=== PATIENT | female | born 1965 | race Caucasian/White ===

== ENCOUNTER 2016-04-10 14:52 | Emergency (ER) ==
[2016-04-10] MEDS ORDERED: TORADOL IM ONE (17:05)
[2016-04-10] MEDS ORDERED: DEPO-MEDROL IM ONE (17:05)
[2016-04-10] MEDS ORDERED: NORFLEX IM ONE (17:05)
--- NOTE | 2016-04-10 17:10 | PROVIDER DOCUMENTATION ---
HPI-General Adult - General Chief Complaint: Back Pain Stated Complaint: BACK PAIN Time Seen by Provider: 04/10/16 16:43 Source: patient Allergies/Adverse Reactions: Patient Allergies Allergy/AdvReac Type Severity Reaction Status Date / Time albuterol Allergy Intermediate VOMITING Verified 04/10/16 14:59 adhesive Allergy Unknown Verified 04/10/16 14:59 cefazolin sodium * Allergy ANAPHYLAXIS Verified 04/10/16 14:59 [From Ancef] morphine Allergy HIVES Verified 04/10/16 14:59 oxycodone HCl * Allergy NAUSEA Verified 04/10/16 14:59 [From Percocet] povidone-iodine Allergy RASH Verified 04/10/16 14:59 [From Betadine] soap * [From Betadine] Allergy RASH Verified 04/10/16 14:59 Home Medications: Clonazepam [Klonopin] 1 mg PO TID PRN 04/30/12 Furosemide [Lasix] 40 mg PO DAILY 04/30/12 Carvedilol [Coreg] 3.125 mg PO DAILY 09/26/12 Bupropion [Wellbutrin] 150 mg PO BID 04/01/13 Divalproex E.r. [Depakote ER] 500 mg PO HS 04/01/13 Losartan [Cozaar] 100 mg PO QHS 04/01/13 Dicyclomine HCl [Bentyl] 20 mg PO BID 04/21/15 Omeprazole [Prilosec] 40 mg PO BID 04/21/15 Pramipexole [Mirapex] 1 mg PO QHS 04/21/15 Trazodone [Desyrel] 150 mg PO QHS 04/21/15 Hyoscyamine Subl [Levsin-Sl] 0.25 mg SL 4XDAY PRN 11/17/15 - History of Present Illness -Gen Adult Nature of Presenting Problems: Pt. is 50 yof that presents with c/o low back pain with sciatica down her right leg that began on [place] and has progressively gotten worse. Pt. denies any injury or other symptoms. Pt. reports she has taken some steroids and OTC medications with no relief. Location of Pain/Injury: reports: back. denies: head, face, mouth, neck, chest , upper extremity, hand(s), abdomen, pelvis, genitalia, lower extremity, feet, upper body, lower body, generalized Pain Radiation: reports: legs (upper) (Right) Quality of Pain: reports: burning. denies: aching, cramping, dull, fullness, indigestion, pressure, sharp, stabbing, tearing, throbbing, tightness Severity: reports: moderate. denies: mild, severe Onset/Duration: reports: gradual, other (10 days) Timing: reports: still present, constant, changing over time, getting worse. denies: improving, gone now, resolved prior to arrival, intermittent Context/Activities at Onset: reports: none. denies: recent emotional stress, recent physical stress, recent trauma history, possible bad food, cold exposure , out of country travel Modifying Factors: improves with: nothing Associated Symptoms: reports: back/neck pain. denies: anxiety, arm pain, chest pain, constipation, cough, diaphoresis, diarrhea, dizziness, EENT symptoms, fatigue, fever/chills, genitourinary problems, headaches, heartburn, joint pain , loss of appetite, malaise, muscle aches, sinus congestion/drainage, nausea, rash, seizure, shortness of breath, sensory/motor loss, pain with inspiration, swelling/mass in abdomen, syncope, vomiting, weakness, trouble walking Similar Symptoms Previously?: Yes Recently seen or treated by another doctor?: No Review of Systems - Adult - REVIEW OF SYSTEMS - ADULT Constitutional: reports: see HPI. denies: chills, fever, fatique Eyes: reports: see HPI. denies: discharge, blurred vision, double vision Ears, Nose, Mouth & Throat: reports: see HPI. denies: ear discharge, ear pain, hearing loss, sinus problem, nose pain, loose teeth, mouth/dental pain, throat pain, throat swelling Cardiovascular: reports: see HPI. denies: chest pain, irregular heart rate, orthopnea, palpitations, syncope Respiratory: reports: see HPI. denies: chronic cough, cough, dyspnea on exertion, pleurisy, shortness of breath, wheezing Gastrointestinal: reports: see HPI. denies: abdominal pain, hematemesis, diarrhea, nausea, vomiting Genitourinary: reports: see HPI. denies: dysuria, discharge, hematuria, hesitency, urgency Musculoskeletal: reports: see HPI, back pain, muscle aches. denies: bone pain, joint pain, joint swelling, neck pain Integumentary: reports: see HPI. denies: hives, itching, rash, skin thickening Neurological: reports: see HPI. denies: ataxia, headache/migraines, numbness, paresthesia, seizure, syncope, tremors Psychiatric: reports: see HPI. denies: anxiety, depression, emotional problems , insomnia, panic attacks, suicidal thoughts Past History - Adult - PAST MEDICAL HISTORY-ADULT Review of Records: reports: Old Records Reviewed, Nursing Assessment Review, Medications Reviewed, Social history reviewed & non-contributory. Major Childhood Illnesses: reports: denies history Cardiovascular: reports: HTN Respiratory: reports: asthma, COPD Gastrointestinal: reports: Crohn's, colitis, IBS Obstetrical/Gynecological: reports: denies history Genitourinary: reports: denies history Musculoskeletal: reports: denies history Neurological: reports: denies history Psychiatric: reports: anxiety, depression (major) Endocrine/Immune: reports: denies history Other Conditions: reports: denies history - PRIOR SURGERIES/PROCEDURES Surgical/Procedure History: reports: cholecystectomy, hysterectomy, tonsillectomy, other (Right Knee Repair) - PRIOR HOSPITALIZATIONS Prior Hospitalizations: reports: for other non-related - IMMUNIZATION STATUS Childhood Immunizations: See Nurse Assessment Flu Vaccine: See Nurse Assessment - FAMILY HISTORY Family History: reviewed, not pertinent Physical Exam-General - PHYSICAL EXAM-ADULT Initial Vital Signs Reviewed: Yes - CONSTITUTIONAL General Appearance: alert, mild distress, obese. negative: thin, anxious, lethargic, slow to respond, obtunded, combative - EYES Eyes: PERRL/EOMI, pink conjunctivae. negative: conjuctival exudate, photophobia , sclera injected, subconjunctival hemorrhage - HEAD, EARS, NOSE, MOUTH & THROAT HENMT: normocephalic/atraumatic, moist mucous membranes, normal ENT inspection. negative: angioedema, frontal tenderness, maxillary tenderness - NECK Neck: non-tender, full range of motion, supple, normal inspection. negative: lymphadenopathy, trachial deviation, thyromegaly - RESPIRATORY Respiratory: lungs clear, normal breath sounds. negative: crackles, rales, rhonchi, stridor, wheezing - CARDIOVASCULAR Cardiovascular: normal peripheral pulses, regular rate, rhythm, no edema, no JVD , no murmur. negative: extra beats, friction rub, irregularly irregular - CHEST (BREASTS) Chest/Breast: deferred - GASTROINTESTINAL (ABDOMEN) Abdominal Exam: normal bowel sounds, non tender, soft. negative: distended, guarding, rigid, rebound, tenderness, hernia, mass - GENITOURINARY Female Genitalia/Pelvic Exam: deferred Rectal Exam: deferred Hemoccult Exam: deferred - LYMPHATIC Lymphatic: no adenopathy. negative: axilla node tender, cervical node tenderness - MUSCULOSKELETAL Back Exam: normal inspection, no CVA tenderness, no vertebral tenderness, decreased range of motion, muscle spasm. negative: ecchymosis, swelling, vertebral tenderness Extremity: normal range of motion, normal gait, tenderness (Back of right leg). negative: deformity, erythema, inflammation, swelling Peripheral Pulses: radial (R): 2+, radial (L): 2+ - SKIN Integumentary: normal color, normal turgor, warm/dry. negative: cyanosis, diaphoresis, ecchymosis, erythema, jaundice, mottled, pallor, petechiae, purpura , rash, swelling, tenderness - NEUROLOGIC Neurologic: grossly normal, no motor/sensory deficits. negative: abnormal gait , aphasia, facial droop, focal weakness, motor weakness, sensory deficit - PSYCHIATRIC Psych/Mental Status: normal mood/affect, normal thought content, normal thought process, oriented x 3. negative: anxious, paranoid, tearful Progress - PLAN OF CARE/RESULTS Progress/Plan/Lab Results: Discussed results and plan of care with patient. Patient agrees with plan and verbalizes understanding. Vital Signs Temp Pulse Resp BP Pulse Ox 04/10/16 14:56 97 F L 90 17 118/086 99 albuterol Allergy (Intermediate, Verified 04/10/16 14:59) VOMITING adhesive Allergy (Verified 04/10/16 14:59) Unknown cefazolin sodium * [From Ancef] Allergy (Verified 04/10/16 14:59) ANAPHYLAXIS morphine Allergy (Verified 04/10/16 14:59) HIVES oxycodone HCl * [From Percocet] Allergy (Verified 04/10/16 14:59) NAUSEA povidone-iodine [From Betadine] Allergy (Verified 04/10/16 14:59) RASH soap * [From Betadine] Allergy (Verified 04/10/16 14:59) RASH Clonazepam [Klonopin] 1 mg PO TID PRN 04/30/12 Furosemide [Lasix] 40 mg PO DAILY 04/30/12 Carvedilol [Coreg] 3.125 mg PO DAILY 09/26/12 Bupropion [Wellbutrin] 150 mg PO BID 04/01/13 Divalproex E.r. [Depakote ER] 500 mg PO HS 04/01/13 Losartan [Cozaar] 100 mg PO QHS 04/01/13 Dicyclomine HCl [Bentyl] 20 mg PO BID 04/21/15 Omeprazole [Prilosec] 40 mg PO BID 04/21/15 Pramipexole [Mirapex] 1 mg PO QHS 04/21/15 Trazodone [Desyrel] 150 mg PO QHS 04/21/15 Aspirin 81 mg PO DAILY #30 chewtab 04/22/15 Hyoscyamine Subl [Levsin-Sl] 0.25 mg SL 4XDAY PRN 11/17/15 Ondansetron [Zofran] 4 mg PO Q6H PRN PRN #20 tablet 12/20/15 Promethazine [Phenergan] 25 mg PO Q6H PRN PRN #20 tablet 12/27/15 Orders Category Date Time Status Ketorolac [Toradol] Med 04/10/16 17:05 Discontinued 60 mg IM NOW ONE Methylprednisolone Acetate [Depo-Medrol] Med 04/10/16 17:05 Discontinued 40 mg IM NOW ONE Orphenadrine [Norflex] Med 04/10/16 17:05 Discontinued 60 mg IM NOW ONE Departure - Departure Time of Disposition Order: 17:22 DIAGNOSIS: Lumbago with sciatica, right side Qualifiers: Chronicity: chronic Back pain laterality: right Qualified Code(s): M54.41 - Lumbago with sciatica, right side; G89.29 - Other chronic pain Disposition: HOME 01 Certified Medical Emergency: Emergent Condition: Stable Additional Instructions: Follow up with primary care physician Take medications as directed Return to ED for any concerns or worsening of symptoms ED Follow Up Instructions: You have been treated by a care provider in the Emergency Department. These instructions are being provided to you so you can have an understanding of how to care for yourself upon discharge. Upon discharge from the Emergency Department, you are responsible for making arrangements for follow-up care by a physician of your choice. Take all prescribed medications as directed. Return to the Emergency Department immediately for any new or worsening symptoms. You may call the Physician Referral phone number at [phone] to obtain a list of Physicians who are taking new patients. Prescriptions: Methylprednisolone [Medrol Dosepak] 4 mg PO DIRECTED #1 package Methocarbamol [Robaxin-750] 750 mg PO BID #14 tablet Tramadol [Ultram] 50 mg PO Q8HR #12 tablet Attestation - Physician/ Mid-level Attestation Patient care was provided by Mid-level provider (MANAGER POST/PA):: Yes Mid-level provider:: Marco A Rose Mid-level documentation review:: The Mid-level provider documentation, treatment plan and medical decision making was reviewed by the physician who agrees with all treatment and medical decision making by the MLP.
[2016-04-10 17:41] VITALS: BP 130/83
== END 2016-04-10 17:41 | disposition home or self-care (01) ==
LOC: P.ED 14:52
DX: M54.41 Lumbago with sciatica, right side (principal); G89.29 Other chronic pain; M79.651 Pain in right thigh; M79.1 Myalgia; I10 Essential (primary) hypertension; J44.9 Chronic obstructive pulmonary disease, unspecified; K58.9 Irritable bowel syndrome, unspecified; F41.9 Anxiety disorder, unspecified; F32.9 Major depressive disorder, single episode, unspecified; E66.9 Obesity, unspecified; Z79.899 Other long term (current) drug therapy
CPT/HCPCS: 96372; J1030; J1885; J2360

== ENCOUNTER 2016-06-20 18:36 | Emergency (ER) ==
--- NOTE | 2016-06-20 20:01 | PROVIDER DOCUMENTATION ---
HPI-General Adult <David Lay - Last Filed: 06/20/16 21:49> - General Source: patient - History of Present Illness -Gen Adult Nature of Presenting Problems: 50 year old F presents to the ED with a cc of a cough and shortness of breath. PT states that onset was 3 months ago. Pt states that she has had 7 rounds of antibiotics. Pt states that she saw Dr. Aguiar last week and was told that she still had pneumonia. Pain Radiation: reports: no radiation Quality of Pain: reports: none Severity: reports: mild Onset/Duration: reports: other (3 months) Associated Symptoms: reports: cough, shortness of breath Similar Symptoms Previously?: Yes Recently seen or treated by another doctor?: Yes <Philomena Clement - Last Filed: 06/20/16 21:54> - General Chief Complaint: Shortness of Breath Stated Complaint: SOB Time Seen by Provider: 06/20/16 19:23 Allergies/Adverse Reactions: Patient Allergies Allergy/AdvReac Type Severity Reaction Status Date / Time albuterol Allergy Intermediate VOMITING Verified 06/20/16 18:50 adhesive Allergy Unknown Verified 06/20/16 18:50 cefazolin sodium * Allergy ANAPHYLAXIS Verified 06/20/16 18:50 [From Ancef] morphine Allergy HIVES Verified 06/20/16 18:50 oxycodone HCl * Allergy NAUSEA Verified 06/20/16 18:50 [From Percocet] povidone-iodine Allergy RASH Verified 06/20/16 18:50 [From Betadine] soap * [From Betadine] Allergy RASH Verified 06/20/16 18:50 Home Medications: Home Medication List Medication Instructions Recorded Confirmed Last Taken Type Clonazepam [Klonopin] 1 mg PO TID PRN 04/30/12 05/19/16 05/18/16 History Furosemide [Lasix] 40 mg PO DAILY 04/30/12 05/19/16 05/18/16 History Carvedilol [Coreg] 3.125 mg PO DAILY 09/26/12 05/19/16 05/18/16 History Bupropion [Wellbutrin] 150 mg PO BID 04/01/13 05/19/16 05/18/16 History Divalproex E.r. [Depakote ER] 500 mg PO HS 04/01/13 05/19/16 05/18/16 History Losartan [Cozaar] 100 mg PO QHS 04/01/13 05/19/16 05/18/16 History Dicyclomine HCl [Bentyl] 20 mg PO BID 04/21/15 05/19/16 05/18/16 History Omeprazole [Prilosec] 40 mg PO BID 04/21/15 05/19/16 05/18/16 History Pramipexole [Mirapex] 1 mg PO QHS 04/21/15 05/19/16 05/18/16 History Trazodone [Desyrel] 150 mg PO QHS 04/21/15 05/19/16 05/18/16 History Aspirin 81 mg PO DAILY #30 chewtab 04/22/15 05/19/16 05/18/16 Rx Promethazine [Phenergan] 25 mg PO Q6H PRN PRN #20 tablet 12/27/15 05/19/1605/18 Rx Azithromycin [Zithromax Z-Fili] 250 mg PO DIRECTED #1 pkg 05/19/16 Unknown Rx Benzonatate [Tessalon Perle] 100 mg PO TID PRN PRN #20 capsule 05/19/16 Unknown Rx Budesonide/Formoterol Inhaler 2 puff INH PRN PRN 05/19/16 05/19/16 05/18/16 History [Symbicort 160/4.5 Microgm Inhaler] Infliximab [Remicade] 100 mg IV DIRECTED 05/19/16 05/19/16 Unknown History Levalbuterol Inhaler [Xopenex Hfa] 1 puff INH Q6H PRN PRN #1 inhaler 05/19/16 Unknown Rx Levalbuterol Inhaler [Xopenex Hfa] 2 puff INH PRN PRN 05/19/16 05/19/16 History Levalbuterol Neb [Xopenex Neb] 1.25 mg .SEE ORDER BID #30 neb 05/19/16 Unknown Rx Methylprednisolone [Medrol Dosepak] 4 mg PO DIRECTED #1 package 05/19/16 Unknown Rx Ibuprofen [Motrin] 800 mg PO Q8H PRN PRN #20 tablet 05/21/16 Unknown Rx Omeprazole [Prilosec] 20 mg PO DAILY@0700 #20 capsule 05/21/16 Unknown Rx Tramadol [Ultram] 50 mg PO Q8HR #14 tablet 05/21/16 Unknown Rx Guaifenesin/Codeine [Robitussin-AC] 10 ml PO Q4H PRN PRN #8 oz 06/20/16 Unknown Rx Review of Systems - Adult - REVIEW OF SYSTEMS - ADULT Constitutional: denies: chills, fever Eyes: reports: no symptoms reported Ears, Nose, Mouth & Throat: reports: no symptoms reported Cardiovascular: denies: chest pain, palpitations Respiratory: reports: cough, shortness of breath Gastrointestinal: denies: diarrhea, nausea, vomiting Genitourinary: reports: no symptoms reported Musculoskeletal: reports: no symptoms reported Integumentary: reports: no symptoms reported Neurological: reports: no symptoms reported Psychiatric: reports: no symptoms reported Endocrine: reports: no symptoms reported Hematologic/Lymphatic: reports: no symptoms reported Allergic/Immunologic: reports: no symptoms reported All Other Systems: Reviewed and Negative <Philomena Clement - Last Filed: 06/20/16 21:54> Past History - Adult - PAST MEDICAL HISTORY-ADULT Review of Records: reports: Nursing Assessment Review, Medications Reviewed Major Childhood Illnesses: reports: denies history Cardiovascular: reports: HTN Respiratory: reports: asthma, COPD Gastrointestinal: reports: Crohn's, colitis, IBS Obstetrical/Gynecological: reports: denies history Genitourinary: reports: denies history Musculoskeletal: reports: denies history Neurological: reports: denies history Psychiatric: reports: anxiety, depression (major) Endocrine/Immune: reports: denies history Other Conditions: reports: denies history - PRIOR SURGERIES/PROCEDURES Surgical/Procedure History: reports: cholecystectomy, hysterectomy, tonsillectomy, orthopedic (extremity) (Multiple shoulder surgeries), other ( Right Knee Repair) - PRIOR HOSPITALIZATIONS Prior Hospitalizations: reports: for other non-related - IMMUNIZATION STATUS Childhood Immunizations: See Nurse Assessment Flu Vaccine: See Nurse Assessment - FAMILY HISTORY Family History: reviewed, not pertinent - SOCIAL HISTORY Smoking: cigarettes, less than 1 pack/day Provider spent 3-5 mins advising pt. on dangers of tobacco.: Discussed manners to quit use, and f/u contacts for add'l counseling. Substance Use: none/never Alcohol Use Frequency: never <Philomena Clement - Last Filed: 06/20/16 21:54> Physical Exam-General - PHYSICAL EXAM-ADULT Initial Vital Signs Reviewed: Yes - CONSTITUTIONAL General Appearance: appears well, alert, no apparent distress - RESPIRATORY Respiratory: chest non-tender, lungs clear, normal breath sounds - CARDIOVASCULAR Cardiovascular: normal peripheral pulses, regular rate, rhythm, no edema - GASTROINTESTINAL (ABDOMEN) Abdominal Exam: non tender, soft - SKIN Integumentary: normal color, normal turgor, warm/dry - PSYCHIATRIC Psych/Mental Status: normal mood/affect, normal thought content, normal thought process, oriented x 3 <Philomena Clement - Last Filed: 06/20/16 21:54> Progress - PLAN OF CARE/RESULTS Progress/Plan/Lab Results: plan of care: imaging, labs, medications, EKG Orders Category Date Time Status Cardiac Monitoring DIRECTED Care 06/20/16 19:19 Active Oxygen Therapy- ED Nursing DIRECTED Care 06/20/16 19:19 Active Saline Loc NOW Care 06/20/16 19:19 Active CHEST-2 VIEWS [RAD] Stat Exams 06/20/16 19:17 Taken ABG [RESP] Routine Lab 06/20/16 20:39 Completed CBC WITH ELECTRONIC DIFF [HEME] Stat Lab 06/20/16 20:05 Completed CK PROFILE [SP CHEM] Stat Lab 06/20/16 20:05 Completed COMPREHENSIVE METABOLIC PANEL [CHEM] Stat Lab 06/20/16 20:[address] D-D[address]ER [address] [COAG] Stat Lab 06/20/16 20:05 Completed MAGNESIUM [CHEM] Stat Lab 06/20/16 20:05 Completed PRO B-NATRIURETIC PEPTIDE Stat Lab 06/20/16 20:[address]IME WITH INR PL [COAG] Stat Lab 06/20/16 20:[address] [COAG] Stat Lab 06/20/16 20:05 Completed TROPONIN T Stat Lab 06/20/16 20:05 Completed Guaifenesin/Codeine [Robitussin-AC] Med 06/20/16 21:49 Discontinued 10 ml PO NOW ONE Methylprednisolone Acetate [Depo-Medrol] Med 06/20/16 21:48 Discontinued 40 mg IM NOW ONE EKG [EKG] Stat Ther 06/20/16 19:19 Draft Laboratory Tests 06/20/16 06/20/16 06/20/16 20:05 20:05 20:05 WBC RBC Hgb Hct MCV MCH MCHC RDW Std Deviation Plt Count MPV Immature Gran % (Auto) Neut % (Auto) Lymph % (Auto) [place] % (Auto) Eos % (Auto) Baso % (Auto) Immature Gran # (Auto) Neut # (Auto) Lymph # (Auto) [place] # (Auto) Eos # (Auto) Baso # (Auto) PT INR APTT (Factor Assay) D-Dimer Specimen Type Sample Site pH pCO2 pO2 HCO3 Base Excess Oxyhemoglobin ABG O2 Sat (Calculated) ABG O2 Saturation ABG Carboxyhemoglobin ABG Methemoglobin [place] Test A-a O2 Difference Total Hemoglobin Lactate Blood Gas Modality FiO2 % Sodium 131 L Potassium 3.8 Chloride 96 L Carbon Dioxide 24 L Anion Gap 12 BUN 6 L Creatinine 0.5 Estimated GFR/1.73 m2 > 60 BUN/Creatinine Ratio 12 Glucose 86 Calculated Osmolality 260 Calcium 9.6 Magnesium 2.0 Total Bilirubin 0.30 AST 18 ALT 27 Alkaline Phosphatase 45 Creatine Kinase 47 Troponin T < 0.010 [id number] Pept 6 Total Protein 7.0 Albumin 4.4 Globulin 3.0 Albumin/Globulin Ratio 2.0 06/20/16 06/20/16 06/20/16 20:05 20:05 20:39 WBC 7.17 RBC 4.63 Hgb 13.8 Hct 41.9 MCV 90.5 MCH 29.8 MCHC 32.9 L RDW Std Deviation 12.2 Plt Count 245 MPV 9.7 Immature Gran % (Auto) 0.3 Neut % (Auto) 42.8 Lymph % (Auto) 43.1 [place] % (Auto) 10.2 H Eos % (Auto) 2.8 Baso % (Auto) 0.8 Immature Gran # (Auto) 0.02 Neut # (Auto) 3.07 Lymph # (Auto) 3.09 [place] # (Auto) 0.73 H Eos # (Auto) 0.20 Baso # (Auto) 0.06 PT 12.7 INR 0.92 APTT (Factor Assay) 30.3 D-Dimer 0.32 Specimen Type ARTERIAL Sample Site R BRACHIAL pH 7.51 H pCO2 35 pO2 100 HCO3 28.7 H Base Excess 5.0 H Oxyhemoglobin 93.2 L ABG O2 Sat (Calculated) 19.4 ABG O2 Saturation 96.7 ABG Carboxyhemoglobin 3.00 H ABG Methemoglobin 0.7 [place] Test YES A-a O2 Difference 6.0 Total Hemoglobin 14.7 Lactate 0.80 Blood Gas Modality ROOM AIR FiO2 % 21.0 Sodium Potassium Chloride Carbon Dioxide Anion Gap BUN Creatinine Estimated GFR/1.73 m2 BUN/Creatinine Ratio Glucose Calculated Osmolality Calcium Magnesium Total Bilirubin AST ALT Alkaline Phosphatase Creatine Kinase Troponin T [id number] Pept Total Protein Albumin Globulin Albumin/Globulin Ratio Vital Signs - 24 hr 06/20/16 06/20/16 06/20/16 18:41 18:59 20:01 Temperature 98.3 F Pulse Rate 95 H 90 87 Respiratory 18 23 22 Rate Blood Pressure 138/76 134/82 119/88 O2 Sat by Pulse 96 96 95 Oximetry 06/20/16 21:25 Temperature Pulse Rate 81 Respiratory 19 Rate Blood Pressure 118/84 O2 Sat by Pulse 96 Oximetry Pt given results and will be d/c home w/ rx to follow up with PCP. Pt verbally understood instructions. PT remained clinically stable throughout the course of the ED stay and will return if symptoms worsen. - EKG 1 Time of EKG reading by physician:: 20:28 EKG Read and Signed by:: David Lay EKG Interpretation (*Must complete 3 of following elements*): Normal Rate: 86 Rhythm: NSR [place]: normal - XRAY 1 XRAY Study: Chest Impression: Abnormal XRAY Interpretation: bilateral plate like atelectasis- Dr. Lay-ENRRIQUE RIVERA <Philomena Clement - Last Filed: 06/20/16 21:54> Departure - Departure Time of Disposition Order: 21:49 Certified Medical Emergency: Emergent <David Lay - Last Filed: 06/20/16 21:49> <Philomena Clement - Last Filed: 06/20/16 21:54> - Departure DIAGNOSIS: Chronic coughing Disposition: HOME 01 Condition: Stable Additional Instructions: ED Follow Up Instructions: You have been treated by a care provider in the Emergency Department. These instructions are being provided to you so you can have an understanding of how to care for yourself upon discharge. Upon discharge from the Emergency Department, you are responsible for making arrangements for follow-up care by a physician of your choice. Take all prescribed medications as directed. Return to the Emergency Department immediately for any new or worsening symptoms. You may call the Physician Referral phone number at [phone] to obtain a list of Physicians who are taking new patients. Prescriptions: Guaifenesin/Codeine [Robitussin-AC] 10 ml PO Q4H PRN PRN #8 oz PRN Reason: Cough Referrals: Star Haile MD [Primary Care Provider] - Attestation - Scribe Verification/Attestation Scribe:: Philomena Clement Acting as Scribe for:: David Lay Scribe documention review:: This chart was documented by a scribe and accurately reflects the service the provider performed and the decisions made by the provider. <Philomena Clement - Last Filed: 06/20/16 21:54> Physician Attestation - Physician Attestation I, the provider, attest to the following statement:: David Lay Physician documentation Attestation:: This documentation recorded by the scribe accurately reflects the service I personally performed and the decisions made by me. <Philomena Clement - Last Filed: 06/20/16 21:54>
[2016-06-20 20:14] LABS: MANUAL DIFF NEEDED? NO
[2016-06-20 20:16] LABS: BASO% 0.8 % (0.0-0.8); EOS% 2.8 % (0.0-10.0); HEMATOCRIT 41.9 % (37.0-47.0); HEMOGLOBIN 13.8 g/dL (12.0-16.0); IMM GRAN# 0.02 X1000 (0.0-0.04); IMM GRAN% 0.3 % (0.0-0.5); LYMPH# 3.09 X1000 (1.2-3.4); LYMPH% 43.1 % (20.5-51.1); MCH 29.8 PG (27-31); MCHC 32.9 g/dL (33-37); MCV 90.5 FL (81-99); MONO# 0.73 X1000 (0.11-0.59); MONO% 10.2 % (1.7-9.3); MPV 9.7 FL (7.4-10.4); NEUT% 42.8 % (42.2-75.2); PLT 245 X1000 (130-400); RBC 4.63 XMIL (4.2-5.4)
[2016-06-20 20:39] LABS: INR 0.92 (0.86-1.15); PROTIME 12.7 Seconds (12.1-15.5)
[2016-06-20 20:40] LABS: PTT PL 30.3 Seconds (22.6-43.9)
[2016-06-20 20:46] LABS: BLOOD TYPE ARTERIAL; DRAW SITE R BRACHIAL; METHB 0.7 % (0.0-1.5); O2(CT) 19.4 mL/dL (15.0-23.0); PCO2(98.6) 35 mmHg (35-45); PO2(98.6) 100 mmHg (60-100); SAMPLE BLOOD; SAO2 96.7 % (95.0-100.0); THB 14.7 g/dL (11.5-17.4); pH(98.6) 7.51 (7.35-7.45)
[2016-06-20 20:49] LABS: ALLEN TEST YES; MODALITY ROOM AIR
--- NOTE | 2016-06-20 20:52 | EKG Report ---
Test Performed on : 06/20/2016 8:28:13 PM Test Reason : CHEST PAIN Blood Pressure : / mmHG Vent. Rate : 086 BPM Atrial Rate : 086 BPM P-R Int : 190 ms QRS Dur : 088 ms QT Int : 378 ms P-R-T Axes : 064 000 048 degrees QTc Int : 452 ms Normal sinus rhythm. Normal ECG When compared with ECG of 21-APR-2015 15:59, No significant change was found Unconfirmed Result
[2016-06-20 20:58] LABS: AGAP 12; ALBUMIN 4.4 g/dL (3.5-5.0); ALKALINE PHOSPHATASE 45 U/L (32-104); BUN 6 mg/dL (8-22); CALCIUM 9.6 mg/dL (8.8-10.2); CHLORIDE 96 mmol/L (98-107); CK PROFILE 47 U/L (24-173); COSMO 260; GOT 18 U/L (10-30); GPT 27 U/L (10-36); POTASSIUM 3.8 mmol/L (3.5-5.1); SODIUM 131 mmol/L (136-145); TCO2 24 mmol/L (25-35)
[2016-06-20] MEDS ORDERED: DEPO-MEDROL IM ONE (21:48)
[2016-06-20] MEDS ORDERED: ROBITUSSIN-AC PO ONE (21:49)
[2016-06-20 22:27] VITALS: BP 136/103
--- NOTE | 2016-06-21 08:37 | Diag Imaging Result Document ---
PROCEDURE NAME: CHEST-2 VIEWS - 06/20/2016 CHEST, 2 VIEWS: COMPARISON: 05/19/2016. FINDINGS: Heart size is normal. There is linear atelectasis of the bilateral lung bases. There is no consolidation, vascular congestion, pleural effusion, or pneumothorax identified. There is a calcified left hilar lymph node from old granulomatous disease which is stable. There is a central venous catheter again seen. IMPRESSION: Linear atelectasis at bilateral lung bases. No other evidence of acute disease.
== END 2016-06-20 22:43 | disposition home or self-care (01) ==
LOC: P.ED 18:36
DX: R05 Cough (principal); R06.02 Shortness of breath; I10 Essential (primary) hypertension; J45.909 Unspecified asthma, uncomplicated; J44.9 Chronic obstructive pulmonary disease, unspecified; K50.90 Crohn's disease, unspecified, without complications; K58.9 Irritable bowel syndrome, unspecified; F41.9 Anxiety disorder, unspecified; F32.9 Major depressive disorder, single episode, unspecified; Z79.82 Long term (current) use of aspirin; Z79.899 Other long term (current) drug therapy
CPT/HCPCS: 71020; 80053; 82550; 82805; 83735; 83880; 84484; 85025; 85379; 85610; 85730; 93005; 96372; J1030

== ENCOUNTER 2016-08-02 19:37 | Inpatient (IN) ==
[2016-08-02] MEDS ORDERED: MORPHINE IV ONE (20:22)
[2016-08-02] MEDS ORDERED: NS 1,000 ML IV ONE (20:22)
[2016-08-02] MEDS ORDERED: ZOFRAN IV ONE (20:22)
[2016-08-02 20:48] LABS: MANUAL DIFF NEEDED? NO
[2016-08-02 20:52] LABS: BASO% 0.3 % (0.0-0.8); EOS# 0.27 X1000 (0.0-0.7); EOS% 2.9 % (0.0-10.0); HEMATOCRIT 38.6 % (37.0-47.0); HEMOGLOBIN 13.2 g/dL (12.0-16.0); LYMPH# 2.58 X1000 (1.2-3.4); LYMPH% 28.1 % (20.5-51.1); MCH 31.1 PG (27-31); MCHC 34.2 g/dL (33-37); MONO# 0.82 X1000 (0.11-0.59); MONO% 8.9 % (1.7-9.3); MPV 9.9 FL (7.4-10.4); NEUT% 59.8 % (42.2-75.2); PLT 208 X1000 (130-400); RBC 4.24 XMIL (4.2-5.4)
[2016-08-02 21:12] LABS: AGAP 15; ALBUMIN 3.9 g/dL (3.5-5.0); ALKALINE PHOSPHATASE 49 U/L (32-104); BUN 16 mg/dL (8-22); CALCIUM 9.4 mg/dL (8.8-10.2); CHLORIDE 99 mmol/L (98-107); COSMO 280; GOT 37 U/L (10-30); GPT 89 U/L (10-36); LIPASE 20 U/L (13-60); POTASSIUM 4.2 mmol/L (3.5-5.1); SODIUM 139 mmol/L (136-145); TCO2 25 mmol/L (25-35); TOTAL BILIRUBIN 0.45 mg/dL (0.20-1.00); TOTAL PROTEIN 7.5 g/dL (6.3-8.3)
[2016-08-02] MEDS ORDERED: DILAUDID IV ONE ×2 (21:31→22:01)
[2016-08-02] MEDS ORDERED: OFIRMEV 1000 MG/ISOTONIC SOLN 1,000 MG/100 ML BOTTLE IV ONE (22:02)
[2016-08-02 22:05] LABS: SED RATE 9 mm/hr (0-20)
[2016-08-02] MEDS ORDERED: LEVAQUIN 750 MG/D5W 750 MG/150 ML IVPB IV ONE (22:12)
[2016-08-02] MEDS ORDERED: FLAGYL 500 MG/NS 500 MG/100 ML IVPB IV ONE (22:13)
[2016-08-02] MEDS ORDERED: SODIUM CHLORIDE 0.9% INJ ONE (22:18)
[2016-08-02] MEDS ORDERED: SOLU-MEDROL IV ONE (22:22)
--- NOTE | 2016-08-02 22:25 | Diag Imaging Result Document ---
PROCEDURE NAME: CT ABD/PELVIS W/ IV CONT ONLY - 08/02/2016 CT ABDOMEN AND PELVIS WITH INTRAVENOUS CONTRAST: COMPARISON: 12/20/2015. FINDINGS: There is atelectasis in the lower lungs. The gallbladder has been removed. There is fatty infiltration of the liver. Normal spleen, pancreas, and adrenal glands. There are several small renal cysts. No solid renal masses. No hydronephrosis. No aortic aneurysm. Mild atherosclerosis. There is stool throughout the colon. No bowel obstruction. The appendix has been removed. There are inflammatory changes about several diverticula in the proximal sigmoid colon. No definite free air or abscess. The urinary bladder is moderately distended and appears normal. The uterus has been removed. No pelvic mass. IMPRESSION: 1. Sigmoid diverticulitis. 2. Cholecystectomy. 3. Fatty infiltration of the liver. 4. Constipation. 5. Hysterectomy. 6. Appendectomy. A preliminary report was given at 10:03 p.m.
[2016-08-02] MEDS: PHENERGAN IV PRN (22:44)
[2016-08-03] MEDS: NS 1,000 ML IV SCH ×3 (02:35→22:40)
[2016-08-03] MEDS: LEVAQUIN 500 MG/D5W 500 MG/100 ML IVPB IV SCH (02:36)
[2016-08-03] MEDS: DILAUDID IV PRN ×5 (05:24→22:25)
--- NOTE | 2016-08-03 06:32 | HISTORY AND PHYSICAL ---
CHIEF COMPLAINT: Abdominal pain for 1 day. HISTORY OF PRESENTING ILLNESS: A 50-year-old female with a history of ulcerative colitis and hypertension, had presented to the emergency department with a 1-day history of having abdominal pain. She described it as cramping, and stated that she was at times nauseous. She was evaluated in the ER. She had imaging done, which did show that she did have a sigmoid diverticulitis. Due to her presenting symptoms, it was thought that she would need hospitalization for further management. At the time of my examination, she denied any headache, vision changes, fevers, chills, chest pain, shortness of breath, hemoptysis, or weight changes, but complained of abdominal pain. PAST MEDICAL HISTORY: Includes hypertension, ulcerative colitis. PAST SURGICAL HISTORY: Cholecystectomy, hysterectomy, right shoulder surgery. ALLERGIES: Cephalosporin, albuterol, adhesives, morphine. CURRENT MEDICATIONS: As listed in the MAR. SOCIAL HISTORY: About a [id number] history of smoking. She denies any history of alcohol or illicit drug use. FAMILY HISTORY: No history of coronary disease. REVIEW OF SYSTEMS: Twelve point review of systems as listed in HPI. Other systems negative. PHYSICAL EXAMINATION: GENERAL: Cooperative, friendly female. She is resting comfortably now. VITAL SIGNS: Temperature 98.6 degrees, pulse 86, respirations 16, blood pressure 104/67. HEENT: Atraumatic, normocephalic. Extraocular movements intact. PERRLA. NECK: Supple. CHEST: Clear to auscultation. CARDIOVASCULAR: Regular rate and rhythm. ABDOMEN: Soft. Diffuse tenderness. EXTREMITIES: No edema. NEUROLOGIC: She is awake, alert, oriented x3. GENITOURINARY: No bladder distention. SKIN: Warm. LABORATORIES AND STUDIES: WBC 9.18, hemoglobin 13.2, hematocrit 38.6, platelets 208. Sodium 139, potassium 4.2, chloride 99, CO2 25, BUN is 16, creatinine 0.7, glucose is 115. ASSESSMENT: A 50-year-old female with a history of hypertension and ulcerative colitis, who presented to the emergency department with a 1-day history of having abdominal pain. She had imaging done, which did show that she had a sigmoid diverticulitis. Patient will need hospitalization for further management. 1. Acute sigmoid diverticulitis. 2. History of ulcerative colitis. 3. Hypertension. PLAN: 1. We will admit patient to medical floor with telemetry. 2. We will start patient on Flagyl and levofloxacin. 3. Consult gastroenterology. 4. Put patient on clear liquids now. 5. Monitor blood pressure and resume antihypertensive agent. 6. We will put patient on DVT prophylaxis with SCDs. 7. We will continue to follow and reassess. cc: Kasi Carrero MD
[2016-08-03] MEDS: XOPENEX NEB INH SCH ×2 (08:26→19:36)
[2016-08-03] MEDS: FLAGYL 500 MG/NS 500 MG/100 ML IVPB IV SCH ×2 (08:43→16:33)
[2016-08-03] MEDS: WELLBUTRIN PO SCH ×2 (08:44→20:19)
[2016-08-03] MEDS: BENTYL PO SCH ×2 (08:44→20:21)
[2016-08-03] MEDS: PRILOSEC PO SCH ×2 (08:44→20:19)
[2016-08-03] MEDS: LASIX PO SCH (08:45)
[2016-08-03] MEDS: ASPIRIN PO SCH (08:45)
[2016-08-03] MEDS: COREG PO SCH (08:45)
[2016-08-03] MEDS: KLONOPIN PO PRN ×2 (08:48→22:25)
--- NOTE | 2016-08-03 15:36 | PROGRESS NOTE ---
DATE: 08/03/2016 SUBJECTIVE: Ms. Westbrook today refers to be complaining of a lot of pain in the abdomen. Came in yesterday. A CT scan of the abdomen and pelvis is consistent with a sigmoid diverticulitis, some fatty infiltration of the liver and constipation. OBJECTIVE: Vital signs: Blood pressure is 125/69, pulse is 91, respirations is 18, temperature 98.0. General: Ms. Westbrook is a 50-year-old, female. She is in bed , and seems to be in distress. HEENT: Mucosa is pink and moist. Anicteric. Acyanotic. Neck: Supple. Chest: Good air entry bilateral. Cardiovascular: Regular rate and rhythm. Abdomen: Soft. Is mildly tender all over. No guarding. There is an old right upper quadrant scar consistent with gallbladder surgery. Extremities: No pedal edema. PARK GUIDE: Patient is alert and oriented x4. There is no focal neurological deficit. LABORATORY DATA: Has been reviewed. CBC is 9.18, hemoglobin is 13.2, platelet count of 208. Chemistry is also reviewed. Completely normal. C. reactive protein is 83.29. IMAGING STUDIES: A CT scan of the abdomen and pelvic which was done yesterday shows sigmoid diverticulitis, constipation, fatty liver infiltration. ASSESSMENT: 1. Sigmoid diverticulitis. We will continue with the current antibiotics. 2. Constipation. Will treat this more symptomatically. 3. History of ulcerative colitis. Patient is being followed by Dr. Cordova. Used to be on Remicade. Is no more because of insurance issues. 4. Tobacco abuse. 5. Hypertension, stable. cc: You Santos MD MTDD
[2016-08-03] MEDS: DESYREL PO SCH (20:20)
[2016-08-03] MEDS: MIRAPEX PO SCH (20:20)
[2016-08-03] MEDS: COZAAR PO SCH (20:20)
[2016-08-03] MEDS: DEPAKOTE ER PO SCH (20:21)
[2016-08-03 22:04] LABS: MANUAL DIFF NEEDED? NO
[2016-08-03 22:06] LABS: BASO% 0.2 % (0.0-0.8); EOS# 0.06 X1000 (0.0-0.7); EOS% 0.6 % (0.0-10.0); HEMATOCRIT 35.9 % (37.0-47.0); HEMOGLOBIN 11.8 g/dL (12.0-16.0); IMM GRAN# 0.03 X1000 (0.0-0.04); IMM GRAN% 0.3 % (0.0-0.5); LYMPH% 26.4 % (20.5-51.1); MCH 30.6 PG (27-31); MCHC 32.9 g/dL (33-37); MONO# 0.82 X1000 (0.11-0.59); MONO% 8.6 % (1.7-9.3); MPV 9.9 FL (7.4-10.4); NEUT% 63.9 % (42.2-75.2); PLT 195 X1000 (130-400); RBC 3.86 XMIL (4.2-5.4)
[2016-08-03 22:20] LABS: INR 0.98; PROTIME 10.3 Seconds (9.2-11.7)
[2016-08-03 22:22] LABS: AGAP 11; ALBUMIN 3.9 g/dL (3.5-5.0); ALKALINE PHOSPHATASE 47 U/L (32-104); BUN 12 mg/dL (8-22); CALCIUM 8.8 mg/dL (8.8-10.2); CHLORIDE 98 mmol/L (98-107); COSMO 276; GOT 21 U/L (10-30); GPT 63 U/L (10-36); SODIUM 138 mmol/L (136-145); TCO2 29 mmol/L (25-35); TOTAL BILIRUBIN 0.23 mg/dL (0.20-1.00); TOTAL PROTEIN 6.6 g/dL (6.3-8.3)
[2016-08-03] MEDS: PHENERGAN IV PRN (22:25)
[2016-08-04] MEDS: FLAGYL 500 MG/NS 500 MG/100 ML IVPB IV SCH ×3 (00:40→16:40)
[2016-08-04] MEDS: LEVAQUIN 500 MG/D5W 500 MG/100 ML IVPB IV SCH (01:58)
[2016-08-04] MEDS: DILAUDID IV PRN ×5 (02:17→22:09)
[2016-08-04] MEDS: PHENERGAN IV PRN ×3 (06:05→22:09)
[2016-08-04 07:01] LABS: MANUAL DIFF NEEDED? NO
[2016-08-04 07:11] LABS: BASO% 0.3 % (0.0-0.8); EOS# 0.09 X1000 (0.0-0.7); EOS% 1.4 % (0.0-10.0); HEMATOCRIT 36.1 % (37.0-47.0); HEMOGLOBIN 11.6 g/dL (12.0-16.0); LYMPH% 40.7 % (20.5-51.1); MCH 30.6 PG (27-31); MCHC 32.1 g/dL (33-37); MCV 95.3 FL (81-99); MONO# 0.46 X1000 (0.11-0.59); MONO% 6.9 % (1.7-9.3); NEUT% 50.7 % (42.2-75.2); PLT 192 X1000 (130-400); RBC 3.79 XMIL (4.2-5.4)
[2016-08-04 07:35] LABS: AGAP 11; BUN 11 mg/dL (8-22); CALCIUM 8.3 mg/dL (8.8-10.2); CHLORIDE 103 mmol/L (98-107); COSMO 284; POTASSIUM 4.4 mmol/L (3.5-5.1); SODIUM 142 mmol/L (136-145); TCO2 28 mmol/L (25-35)
[2016-08-04] MEDS: XOPENEX NEB INH SCH ×2 (07:37→19:51)
[2016-08-04] MEDS: LASIX PO SCH (08:37)
[2016-08-04] MEDS: COREG PO SCH (08:37)
[2016-08-04] MEDS: WELLBUTRIN PO SCH ×2 (08:37→22:11)
[2016-08-04] MEDS: ASPIRIN PO SCH (08:37)
[2016-08-04] MEDS: PRILOSEC PO SCH ×2 (08:37→22:12)
[2016-08-04] MEDS: KLONOPIN PO PRN (08:43)
[2016-08-04] MEDS: BENTYL PO SCH ×2 (09:00→22:11)
[2016-08-04] MEDS ORDERED: SODIUM CHLORIDE 0.9% 10 ML ONE (12:16)
[2016-08-04] MEDS: NS 1,000 ML IV SCH ×2 (12:23→16:42)
--- NOTE | 2016-08-04 14:48 | PROGRESS NOTE ---
DATE: 08/04/2016 SUBJECTIVE: Today Ms. Westbrook refers to be doing a little better. Continues to have some abdominal discomfort. OBJECTIVE: Vital signs: Blood pressure is 122/54, pulse of 68, respirations 18. General exam: Ms. Westbrook is a 50-year-old female. She was in bed. No distress. HEENT: Mucosa is pink and moist. Anicteric. Acyanotic. Neck: Supple. Chest: Clear. Cardiovascular: Regular rate and rhythm. Abdomen: Soft, mildly tender all over, but no guarding. There is an old right upper quadrant scar consistent with gallbladder surgery in the past. Extremities: No pedal edema. ABSORPTION PLANT OPERATOR HELPER: Patient is alert and oriented x4. LABORATORY DATA: A CBC is reviewed, completely normal except for hemoglobin of 11.6, which is not new. Chemistry is completely normal. ESR was ordered by the GI team and is normal. ASSESSMENT: 1. Sigmoid diverticulitis. Patient is on intravenous antibiotics. We are going to continue. 2. Constipation. Will continue treating this symptomatically. 3. History of ulcerative colitis. This is not in any flare at this point in time. Patient is being followed by Dr. Cordova. 4. Tobacco abuse. Patient has been counseled. 5. Hypertension, stable. PLAN: So, in general I think Ms. Westbrook is relatively stable, is having less pain. We are going to continue with the current IV antibiotics. Hopefully we can get her out either tomorrow or first thing Saturday morning. cc: You Santos MD
[2016-08-04] MEDS: MIRAPEX PO SCH (22:10)
[2016-08-04] MEDS: DESYREL PO SCH (22:11)
[2016-08-04] MEDS: COZAAR PO SCH (22:12)
[2016-08-04] MEDS: DEPAKOTE ER PO SCH (22:12)
[2016-08-05] MEDS: FLAGYL 500 MG/NS 500 MG/100 ML IVPB IV SCH ×3 (01:12→16:36)
[2016-08-05] MEDS: NS 1,000 ML IV SCH (01:22)
[2016-08-05] MEDS: DILAUDID IV PRN ×3 (01:36→09:17)
[2016-08-05] MEDS: LEVAQUIN 500 MG/D5W 500 MG/100 ML IVPB IV SCH (02:50)
[2016-08-05] MEDS: XOPENEX NEB INH SCH ×2 (07:47→19:24)
[2016-08-05] MEDS ORDERED: SODIUM CHLORIDE 0.9% 10 ML ONE (09:10)
[2016-08-05] MEDS: BENTYL PO SCH (09:18)
[2016-08-05] MEDS: WELLBUTRIN PO SCH ×2 (09:18→22:46)
[2016-08-05] MEDS: COREG PO SCH (09:18)
[2016-08-05] MEDS: ASPIRIN PO SCH (09:19)
[2016-08-05] MEDS: PHENERGAN IV PRN ×2 (09:19→16:36)
[2016-08-05] MEDS: LASIX PO SCH (09:19)
[2016-08-05] MEDS: PRILOSEC PO SCH ×2 (09:19→22:48)
[2016-08-05] MEDS ORDERED: MILK OF MAGNESIA PO ONE (10:28)
[2016-08-05] MEDS ORDERED: RELISTOR SUBQ ONE (10:28)
[2016-08-05] MEDS ORDERED: DULCOLAX PR ONE (10:30)
--- NOTE | 2016-08-05 11:39 | PROGRESS NOTE ---
DATE: 08/05/2016 SUBJECTIVE: Today, Ms. Westbrook referred to be fine. She still continues to have some abdominal discomfort, muscle and the epigastrium. PHYSICAL EXAMINATION: Vital Signs: Blood pressure is 116/54, pulse of 80, respirations are 20, temperature is 98.7 degrees. General Examination: Ms. Westbrook is a 50-year-old, female. She was in bed, not seemingly distressed. HEENT: Mucosa is pink and moist. Anicteric and acyanotic. Neck: Supple. Chest: Clear. Cardiovascular: Regular rate and rhythm. Abdomen: Soft. It is distended. It is tender in the epigastrium. There is dullness to percussion in almost everywhere in the abdomen. I think she is just fully loaded with fecal material. ENROLLMENT MANAGEMENT DIRECTOR: The patient is alert and oriented. Slightly drowsy. LABORATORY DATA: No lab work. ASSESSMENT: 1. Sigmoid diverticulitis. We will continue with the current intravenous antibiotics. 2. Constipation. This is getting worse. I think narcotics also are playing a huge part of this so I would discontinue her narcotics. I will give her a dose of methylnaltrexone 12 mcg subcutaneous type. Give her milk of magnesia and a rectal dose of Dulcolax to see if this will help with her constipation, which I think is driving most of her abdominal discomfort now. 3. History of ulcerative colitis. It is not in flare. 4. Tobacco abuse. Patient is counseled. 5. Hypertension, stable. 6. Mild drowsiness this morning. I think this is related to narcotics and sedatives that the patient is getting. I will go ahead and discontinue the narcotic since I think it is actually making her constipation worse. We will use Bentyl intramuscularly if we need anything for the pain. cc: You Santos MD
[2016-08-05] MEDS: BENTYL IM SCH ×2 (13:06→22:58)
[2016-08-05] MEDS: NORCO-5 PO PRN (18:22)
[2016-08-05] MEDS: MIRAPEX PO SCH (22:45)
[2016-08-05] MEDS: DESYREL PO SCH (22:47)
[2016-08-05] MEDS: COZAAR PO SCH (22:48)
[2016-08-05] MEDS: KLONOPIN PO PRN (22:56)
[2016-08-05] MEDS: DEPAKOTE ER PO SCH (22:58)
[2016-08-06] MEDS: NORCO-5 PO PRN ×3 (01:57→17:03)
[2016-08-06] MEDS: FLAGYL 500 MG/NS 500 MG/100 ML IVPB IV SCH ×3 (01:57→17:04)
[2016-08-06] MEDS: LEVAQUIN 500 MG/D5W 500 MG/100 ML IVPB IV SCH (03:25)
[2016-08-06] MEDS: BENTYL IM SCH ×3 (06:37→20:23)
[2016-08-06] MEDS: XOPENEX NEB INH SCH ×2 (08:01→19:57)
[2016-08-06] MEDS: ASPIRIN PO SCH (08:19)
[2016-08-06] MEDS: WELLBUTRIN PO SCH ×2 (08:19→20:22)
[2016-08-06] MEDS: COREG PO SCH (08:20)
[2016-08-06] MEDS: PHENERGAN IV PRN ×2 (08:20→17:03)
[2016-08-06] MEDS: LASIX PO SCH (08:20)
[2016-08-06] MEDS: PRILOSEC PO SCH ×2 (08:20→20:22)
--- NOTE | 2016-08-06 09:16 | Diag Imaging Result Document ---
PROCEDURE NAME: JAZ ABDOMEN - 08/06/2016 AP SUPINE ABDOMEN: FINDINGS: The bowel gas pattern appears nonspecific and nonobstructive. There is a large amount of retained fecal debris in the colon suggesting constipation. There are multiple small metallic densities which are compatible with medication residue in bowel. There are surgical clips at the right upper quadrant. IMPRESSION: Evidence of constipation. Nonspecific bowel gas pattern otherwise.
[2016-08-06] MEDS: KLONOPIN PO PRN (09:50)
[2016-08-06] MEDS ORDERED: MIRALAX PO ONE (14:09)
[2016-08-06] MEDS ORDERED: DULCOLAX PR ONE (14:11)
[2016-08-06] MEDS ORDERED: RELISTOR SUBQ ONE (14:11)
--- NOTE | 2016-08-06 15:32 | PROGRESS NOTE ---
DATE: 08/06/2016 SUBJECTIVE: Today Ms. Westbrook referred to be doing a little better. Continues to be hurting. She was a little upset because her p.o. Bentyl was changed to IM and also her narcotics were discontinued. She refers to have had 3 bowel movements; however, an abdominal x-ray today continues to show evidence of constipation with large amount of retained fecal debris in the colon suggesting constipation. There is also multiple small metallic densities, which are compatible medication residue in the abdomen, so we think she is probably not absorbing anything, that is why I changed her Bentyl. OBJECTIVE: Vital signs: Blood pressure is 101/60, pulse of 67, respirations 15, temperature is 98.1 degrees. General Examination: Ms. Westbrook is a 50-year-old female. She was in bed. Not seemingly distressed. HEENT: Mucosa is pink and moist. Anicteric and acyanotic. Neck: Supple. Chest: Good air entry bilateral. There is diffuse end-expiratory wheezes in both lung iniguez. Cardiovascular: Regular rate and rhythm. Abdomen: Soft, distended. It is dull to percussion in most of the lateral left side of the abdomen, consistent with constipation. ORTHOTIC ASSISTANT: The patient is alert and oriented. LABORATORY DATA: None for today. Vitamin D level is fine. A KUB done today shows a large amount of retained fecal debris. ASSESSMENT: 1. Sigmoid diverticulitis. We will continue with the current antibiotics. 2. Constipation, which I think is due to narcotic abuse. I did mention to her that we will discontinue all narcotics and rather use alternative medication for pain control. 3. History of ulcerative colitis. Currently not in flare. 4. Tobacco abuse. 5. Bronchospasms. I think patient does have underlying chronic obstructive pulmonary disease, which has not been diagnosed. We will treat her with nebulizations and incentive spirometer for now. 6. Drowsiness is improved. I think this was related to narcotics. cc: You Santos MD
[2016-08-06] MEDS: DESYREL PO SCH (20:22)
[2016-08-06] MEDS: DEPAKOTE ER PO SCH (20:22)
[2016-08-06] MEDS: MIRAPEX PO SCH (20:22)
[2016-08-06] MEDS: COZAAR PO SCH (20:23)
[2016-08-07] MEDS: FLAGYL 500 MG/NS 500 MG/100 ML IVPB IV SCH ×4 (00:51→18:07)
[2016-08-07] MEDS: PHENERGAN IV PRN ×3 (00:58→15:53)
[2016-08-07] MEDS: NORCO-5 PO PRN ×3 (00:58→15:53)
[2016-08-07] MEDS: BENTYL IM SCH (05:31)
[2016-08-07] MEDS: LEVAQUIN 500 MG/D5W 500 MG/100 ML IVPB IV SCH (05:33)
[2016-08-07] MEDS: XOPENEX NEB INH SCH (07:48)
--- NOTE | 2016-08-07 09:48 | Diag Imaging Result Document ---
PROCEDURE NAME: JAZ ABDOMEN - 08/07/2016 ABDOMEN, TWO VIEWS: COMPARISON: 08/06/2016. FINDINGS: There is prominent stool throughout the colon. There is radiopaque debris scattered in the colon as well. No organomegaly. Mild degenerative spine changes. No abnormal pelvic calcifications. IMPRESSION: Constipation.
[2016-08-07] MEDS: LASIX PO SCH (09:49)
[2016-08-07] MEDS: ASPIRIN PO SCH (09:49)
[2016-08-07] MEDS: PRILOSEC PO SCH ×2 (09:49→20:12)
[2016-08-07] MEDS: COREG PO SCH (09:50)
[2016-08-07] MEDS: WELLBUTRIN PO SCH ×2 (09:50→20:12)
[2016-08-07] MEDS ORDERED: GOLYTELY PO ONE (12:03)
--- NOTE | 2016-08-07 16:59 | PROGRESS NOTE ---
DATE: 08/07/2016 Today Ms. Westbrook continued to have some abdominal discomfort. She says she had a few bowel movements but they were just minimum and there was some jelly looking mucus after them. OBJECTIVE: Vital signs: Blood pressure is 121/62, pulse of 90, respirations 20, temperature 98.5 degrees. General: Ms. Westbrook is a 50-year-old female. She is in bed, in mild painful distress. HEENT: Mucosa is pink and moist. Anicteric. Acyanotic. Neck: Supple. Chest: Clear. Cardiovascular: Regular rate and rhythm. Abdomen: Soft, mildly tender all over but there is dullness to percussion everywhere. ASSISTANT PORTFOLIO MANAGER: Patient is alert and oriented x4. There is no focal neurological deficit. LABORATORY DATA: None for today. A KUB today continues to show a prominent stool throughout the colon. ASSESSMENT: 1. Sigmoid diverticulitis. The patient is currently on IV antibiotics. We will continue with that. 2. Severe constipation. I think this is probably related to narcotic abuse. We will continue to avoid any narcotic use in the hospital and will continue addressing this symptomatically. Dr. Cordova is on board. 3. History of ulcerative colitis currently not in flare. 4. Tobacco abuse. 5. Bronchospasm is improved. I think patient has an underlying COPD. 6. Drowsiness due to sedatives previously, has improved. So I think Ms. Westbrook continues to be relatively stable. I would order GoLYTELY half to see if we will be able to get her bowel a little clean. Will follow up with further recommendations from Dr. Cordova. cc: You Santos MD
[2016-08-07] MEDS: COZAAR PO SCH (20:12)
[2016-08-07] MEDS: MIRAPEX PO SCH (20:12)
[2016-08-07] MEDS: DESYREL PO SCH (20:12)
[2016-08-07] MEDS: DEPAKOTE ER PO SCH (20:13)
[2016-08-07] MEDS: KLONOPIN PO PRN (20:26)
--- NOTE | 2016-08-07 22:30 | PROGRESS NOTE ---
DATE: 08/07/2016 SUBJECTIVE: The patient states she continues to have abdominal pain and constipation. She was given a laxative, but had minimal output. She continues to be distended. OBJECTIVE DATA: Vital signs: Remarkable in that her blood pressure is 115/72, pulse 78, respiration 18, temperature of 98.4 degrees. Pulmonary: Her lungs are clear to auscultation with normal expiratory effort. Cardiovascular: Reveals regular rate and rhythm. Abdomen: Exam reveals normoactive bowel sounds. The abdomen is soft, but diffusely tender. There is no rebound or guarding. RECOMMENDATION: 1. I agree with plans to administer GoLYTELY in order to purge her bowel. She has longstanding issues with constipation in part due to her narcotic pain requirements. 2. Continue current medication. 3. Once she is spontaneously defecating, it would be reasonable to continue her care as an outpatient. cc: MD You Mendez MD
[2016-08-08] MEDS: NORCO-5 PO PRN ×3 (00:52→16:42)
[2016-08-08] MEDS: PHENERGAN IV PRN ×2 (00:52→09:20)
[2016-08-08] MEDS: FLAGYL 500 MG/NS 500 MG/100 ML IVPB IV SCH ×2 (00:55→09:20)
[2016-08-08] MEDS: LEVAQUIN 500 MG/D5W 500 MG/100 ML IVPB IV SCH (01:55)
[2016-08-08] MEDS: XOPENEX NEB INH SCH ×2 (04:13→08:05)
--- NOTE | 2016-08-08 07:47 | Diag Imaging Result Document ---
PROCEDURE NAME: KUJavad ABDOMEN - 08/08/2016 SINGLE SUPINE RADIOGRAPH OF THE ABDOMEN AND PELVIS: COMPARISON: 08/07/2016. FINDINGS: There appears to be somewhat less stool in the descending colon as compared to the previous study. There is no evidence of bowel obstruction. The abdomen is stable, otherwise. IMPRESSION: Improvement in constipation.
[2016-08-08 08:15] LABS: AGAP 13; BUN 8 mg/dL (8-22); CALCIUM 9.1 mg/dL (8.8-10.2); CHLORIDE 97 mmol/L (98-107); COSMO 274; POTASSIUM 3.8 mmol/L (3.5-5.1); SODIUM 138 mmol/L (136-145); TCO2 28 mmol/L (25-35)
[2016-08-08] MEDS: PRILOSEC PO SCH (09:20)
[2016-08-08] MEDS: LASIX PO SCH (09:20)
[2016-08-08] MEDS: WELLBUTRIN PO SCH (09:20)
[2016-08-08] MEDS: ASPIRIN PO SCH (09:20)
[2016-08-08] MEDS: COREG PO SCH (09:20)
[2016-08-08 09:46] LABS: BASO% 0.6 % (0.0-0.8); EOS# 0.48 X1000 (0.0-0.7); EOS% 6.6 % (0.0-10.0); HEMATOCRIT 39.9 % (37.0-47.0); HEMOGLOBIN 13.6 g/dL (12.0-16.0); IMM GRAN# 0.06 X1000 (0.0-0.04); IMM GRAN% 0.8 % (0.0-0.5); LYMPH# 2.96 X1000 (1.2-3.4); LYMPH% 40.8 % (20.5-51.1); MANUAL DIFF NEEDED? YES; MCH 30.8 PG (27-31); MCHC 34.1 g/dL (33-37); MCV 90.3 FL (81-99); MONO# 0.67 X1000 (0.11-0.59); MONO% 9.2 % (1.7-9.3); MPV 9.3 FL (7.4-10.4); PLT 230 X1000 (130-400); RBC 4.42 XMIL (4.2-5.4)
[2016-08-08 10:19] LABS: EOS 6 % (1-10); LYMPHS 44 % (21-51); MONO 6 % (1-9)
--- NOTE | 2016-08-08 12:45 | PROGRESS NOTE ---
DATE: 08/08/2016 SUBJECTIVE: Today Ms. Westbrook refers to continue to be hurting in her abdomen. Of note, when I ask her if she has any bowel movement, she says she has not had any since Saturday, yet 3 days ago she did tell me that she had some bowel movement, but it was jelly looking, and it has been documented in her chart that she had 1 bowel movement on 08/06/2016 and she had another one on 08/07/2016, yet she denied that. During the encounter, she did mention that she has been having difficulty speaking, and she feels her left hand is jerking, and these are the same symptoms she had a couple of months ago when she had a stroke. An MRI in her chart from April 2015 was completely negative. OBJECTIVE: Vital Signs: On physical exam, blood pressure is 101/52, pulse of 87, respirations 19, temperature is 99.1 degrees. General: Ms Westbrook is a 50-year-old female. She was sitting up in the bed. HEENT: Mucosa was pink and moist. Anicteric. Acyanotic. Neck: Supple. Chest: Clear. Cardiovascular: Regular rate and rhythm. Abdomen: Soft. Mildly distended. Bowel sounds present. Extremities: No pedal edema. Central Nervous System: The patient is alert. She is oriented. She is very, very conversational, yet she thinks she is having dysarthric speech, which I did not appreciate. LABORATORY DATA: CBC is done and it is completely normal. Chemistries reviewed, completely normal. TSH is 5.84, free T4 is 1.32. ASSESSMENT AND PLAN: 1. Sigmoid diverticulitis. The patient is currently on intravenous antibiotics. We are going to switch this to oral. 2. Severe constipation. A KUB this morning shows some improvement. The patient, however, denies to have had any bowel movement, yet there is documentation in the chart that she did. 3. History of ulcerative colitis, currently not in flare. 4. Tobacco abuse. 5. Suspected chronic obstructive pulmonary disease with some bronchospasm a couple of days ago. This is completely cleared. 6. Subjective symptoms of stroke. As I said, my physical exams and interrogation were completely negative. However, the patient is insistent that these are the same symptoms she had a couple of months ago when she had her first stroke. We will, therefore, do an MRI of the brain to make sure that there is nothing that we are missing. 7. I have the subjective impression that she is very narcotic seeking, and she is trying to find every reason to stay here in the hospital. I do not really see any acute medical problems that we would need to keep her here anymore. Her constipation is getting better. Even on x- ray it looks a whole lot better. We will do the MRI, and if that is negative, we will discharge. She will follow up with her gastrointestinal doctor, Dr. Cordova. cc: You Santos MD
[2016-08-08] MEDS ORDERED: FLAGYL PO SCH (13:00)
--- NOTE | 2016-08-08 14:41 | Diag Imaging Result Document ---
PROCEDURE NAME: MRI BRAIN W/O CONTRAST - 08/08/2016 MRI BRAIN WITHOUT: FINDINGS: Axial, sagittal, and coronal images obtained in multiple sequences. No recent infarct. No microvascular ischemic changes. No mass or midline shift. No hydrocephalus. No epidural or subdural fluid collection. No sinus opacification and no air fluid levels. IMPRESSION: No infarct or mass.
[2016-08-08 15:24] VITALS: BP 110/63
[2016-08-08] MEDS ORDERED: HEPARIN ONE (16:38)
--- NOTE | 2016-08-08 18:56 | DISCHARGE SUMMARY ---
ADMISSION DATE: 08/02/2016 DISCHARGE DATE: 08/08/2016 CONSULTATIONS: None. PERTINENT PROCEDURES: 1. Abdomen and pelvis CT showed sigmoid diverticulitis, cholecystectomy, fatty infiltration of the liver, constipation, hysterectomy and appendectomy. 2. Brain MRI, negative. DIAGNOSES: 1. Sigmoid diverticulitis. The patient was treated with IV antibiotics and transitioned to oral. 2. Severe constipation. The KUB this a.m. showed improvement. 3. History of ulcerative colitis currently not in flare. 4. Tobacco abuse. The patient was educated daily on smoking cessation as well as the means to quit. 5. Suspected chronic obstructive pulmonary disease with some bronchospasm. Resolved. 6. Subjective symptoms of stroke. The patient underwent an MRI that was negative. Dr. Santos's physical examination and interrogation were completely negative. 7. Subjective impression that the patient is narcotic-seeking. She keeps trying to find reasons to stay in the hospital. However, she is not having any acute medical problems that she would need to be kept. HOSPITAL COURSE: Ms. Westbrook is a 50-year-old female with a history of ulcer colitis and hypertension. Presented to the ED with a 1-day history of abdominal pain. She describes it as cramping with nausea. She was evaluated in the ED. Imaging done did show her to have sigmoid diverticulitis. She was admitted to the hospital and started on IV antibiotics with Flagyl and levofloxacin. She was put on a clear liquid diet. Dr. Cordova with Gastroenterology was consulted. She agreed with IV antibiotics as well as the administration of GoLYTELY in order to purge the patient's bowels in reference to long-standing issues with constipation due to her narcotic pain requirements. A KUB that was done this a.m. showed improvement in constipation. The patient was ready for discharge and she began complaining of subjective symptoms of a stroke during Dr. Santos's physical exam and interrogation. They were completely negative however the patient was insistent that these were the same symptoms that she had a few months ago when she had her 1st stroke. MRI was performed; it was negative. There was a subjective impression that the patient us narcotic-seeking. She is trying to find reasons a stay in the hospital even though she has been defecating and her imaging shows improvement. She does not have any acute medical problems to keep her in the hospital so she is being discharged to follow up with her GI doctor, Dr. Cordova. Vital signs at time of her discharge, temperature is 98.1 degrees, heart rate 87, respirations 19, blood pressure 101/53, O2 is 93% on room air. DISCHARGE DIET: GI soft. DISCHARGE MEDICATIONS: 1. Aspirin 81 mg p.o. daily. 2. Wellbutrin 150 mg p.o. b.i.d. 3. Coreg 3.125 mg p.o. daily. 4. Klonopin 1 mg p.o. t.i.d. p.r.n. 5. Bentyl 20 mg p.o. b.i.d. 6. Depakote ER 500 mg p.o. at bedtime. 7. Breo Ellipta 225 mcg inhaler 1 puff inhaled daily. 8. Lasix 40 mg p.o. daily. 9. Xopenex inhaler 1.25 mg inhaled b.i.d. 10. Levaquin 250 mg p.o. daily. 11. Cozaar 100 mg p.o. at bedtime. 12. Flagyl 250 mg p.o. q.8 hours. 13. Prilosec 40 mg p.o. b.i.d. 14. MiraLAX 17 g p.o. b.i.d. 15. Mirapex 1 mg p.o. at bedtime. 16. Phenergan 25 mg p.o. q.6 hours p.r.n. 17. Zestril 150 mg p.o. at bedtime. DISPOSITION: The patient is being discharged home. FOLLOWUP: She can follow up with Dr. Cordova as indicated as well as her primary care physician in 7-10 days. The patient can return to the ED for any worsening of symptoms. DISCHARGE TIME: Thirty minutes. Dictated by ANNABELLA Soriano for You Santos MD cc: You Santos MD
[2016-08-08] MEDS ORDERED: MIRALAX PO SCH (21:00)
[2016-08-09] MEDS ORDERED: LEVAQUIN PO SCH (09:00)
--- NOTE | 2016-08-21 00:49 | PROVIDER DOCUMENTATION ---
This chart was entered by Leann Stockton Scribe, acting as scribe for Fab Teran MD. HPI-Abdominal Pain/GI Problem - General Chief Complaint: Nausea/Vomiting Stated Complaint: VOMITING, ABD PAIN Time Seen by Provider: 08/02/16 20:21 Source: patient Allergies/Adverse Reactions: Patient Allergies Allergy/AdvReac Type Severity Reaction Status Date / Time albuterol Allergy Intermediate VOMITING Verified 08/02/16 22:34 adhesive Allergy Unknown Verified 08/02/16 22:34 cefazolin sodium * Allergy ANAPHYLAXIS Verified 08/02/16 22:34 [From Ancef] morphine Allergy HIVES Verified 08/02/16 22:34 oxycodone HCl * Allergy NAUSEA Verified 08/02/16 22:34 [From Percocet] povidone-iodine Allergy RASH Verified 08/02/16 22:34 [From Betadine] soap * [From Betadine] Allergy RASH Verified 08/02/16 22:34 Home Medications: Home Medication List Medication Instructions Recorded Confirmed Last Taken Type Clonazepam [Klonopin] 1 mg PO TID PRN 04/30/12 08/02/16 08/01/16 History Furosemide [Lasix] 40 mg PO DAILY 04/30/12 08/02/16 08/01/16 History Carvedilol [Coreg] 3.125 mg PO DAILY 09/26/12 08/02/16 08/01/16 History Bupropion [Wellbutrin] 150 mg PO BID 04/01/13 08/02/16 08/01/16 History Divalproex E.r. [Depakote ER] 500 mg PO HS 04/01/13 08/02/16 08/01/16 History Losartan [Cozaar] 100 mg PO QHS 04/01/13 08/02/16 08/01/16 History Dicyclomine HCl [Bentyl] 20 mg PO BID 04/21/15 08/02/16 08/01/16 History Omeprazole [Prilosec] 40 mg PO BID 04/21/15 08/02/16 08/01/16 History Pramipexole [Mirapex] 1 mg PO QHS 04/21/15 08/02/16 08/01/16 History Trazodone [Desyrel] 150 mg PO QHS 04/21/15 08/02/16 08/01/16 History Aspirin 81 mg PO DAILY #30 chewtab 04/22/15 08/02/16 08/01/16 Rx Promethazine [Phenergan] 25 mg PO Q6H PRN PRN #20 tablet 12/27/15 08/02/1608/01 Rx Fluticasone/Vilant 200/25 INH 1 puff INH DAILY 06/22/16 08/02/16 08/01/16 History [Breo Ellipta 200/25 Mcg INH] Levalbuterol Neb [Xopenex Neb] 1.25 mg IH BID 06/22/16 08/02/16 08/01/16 History Levofloxacin [Levaquin] 250 mg PO DAILY #7 tablet 08/08/16 Unknown Rx Metronidazole 250 mg PO Q8H #21 tablet 08/08/16 Unknown Rx Polyethylene Glycol 3350 [Miralax] 17 gm PO BID #30 powder, packet 08/08/16 Unknown Rx - History of Present Illness-ABD Nature of Presenting Problems: 50 y/o f presents t6o ED with ABD pain. 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 States not able to to walk straight, has to walk bent over. State she took a phenegan and has had loose bowels yesterday but has been normal to day denies any fever. Hx of ulcerative colitis. Abdominal Pain Onset Location: reports: generalized abdomen Pain Radiation: reports: no radiation Quality of Pain: reports: cramping Severity in ED: reports: severe Onset/Duration: reports: this morning Timing: reports: still present Activities at Onset: reports: sleep Exposure to sick contacts?: No Associated Symptoms: reports: cough, diarrhea (yesterday), vomiting. denies: shortness of breath Last BM: this morning Dark Stools Present?: reports: none noticed Rectal Bleeding: reports: none Review of Systems - Adult - REVIEW OF SYSTEMS - ADULT Constitutional: denies: chills, fever Eyes: reports: no symptoms reported Ears, Nose, Mouth & Throat: reports: no symptoms reported Cardiovascular: reports: no symptoms reported Respiratory: reports: cough. denies: shortness of breath Gastrointestinal: reports: abdominal pain, diarrhea, poor appetite, vomiting. denies: nausea, rectal bleeding Genitourinary: reports: no symptoms reported Musculoskeletal: reports: no symptoms reported Integumentary: reports: no symptoms reported Neurological: denies: dizziness/vertigo, headache/migraines Psychiatric: reports: no symptoms reported Endocrine: reports: no symptoms reported Hematologic/Lymphatic: reports: no symptoms reported Allergic/Immunologic: reports: no symptoms reported All Other Systems: Reviewed and Negative Past History - Adult - PAST MEDICAL HISTORY-ADULT Review of Records: reports: Old Records Reviewed, Nursing Assessment Review, Medications Reviewed, Social history reviewed & non-contributory. Major Childhood Illnesses: reports: denies history Cardiovascular: reports: HTN Respiratory: reports: asthma, COPD Gastrointestinal: reports: Crohn's, colitis, IBS Obstetrical/Gynecological: reports: denies history Genitourinary: reports: denies history Musculoskeletal: reports: denies history Neurological: reports: denies history Psychiatric: reports: anxiety, depression (major) Endocrine/Immune: reports: denies history Other Conditions: reports: denies history - PRIOR SURGERIES/PROCEDURES Surgical/Procedure History: reports: cholecystectomy, hysterectomy, tonsillectomy, orthopedic (extremity) (Multiple shoulder surgeries), other ( Right Knee Repair) - PRIOR HOSPITALIZATIONS Prior Hospitalizations: reports: for other non-related - IMMUNIZATION STATUS Childhood Immunizations: See Nurse Assessment Flu Vaccine: See Nurse Assessment - FAMILY HISTORY Family History: reviewed, not pertinent - SOCIAL HISTORY Smoking: cigarettes, greater than 1 pack/day Substance Use: none/never Alcohol Use Frequency: never Living Situation: family Physical Exam-General - CONSTITUTIONAL General Appearance: alert, mild distress, obese - EYES Eyes: PERRL/EOMI, pink conjunctivae, FUN - HEAD, EARS, NOSE, MOUTH & THROAT HENMT: normocephalic/atraumatic, moist mucous membranes, normal ENT inspection, TMs normal, pharynx normal - NECK Neck: non-tender, full range of motion, supple, normal inspection - RESPIRATORY Respiratory: chest non-tender, lungs clear, normal breath sounds - CARDIOVASCULAR Cardiovascular: normal peripheral pulses, regular rate, rhythm - GASTROINTESTINAL (ABDOMEN) Abdominal Exam: tenderness (generalized) - LYMPHATIC Lymphatic: no adenopathy - MUSCULOSKELETAL Back Exam: normal inspection, no CVA tenderness, no vertebral tenderness Extremity: normal range of motion, non-tender - SKIN Integumentary: normal color, normal turgor, warm/dry - PSYCHIATRIC Psych/Mental Status: normal mood/affect, normal thought content, normal thought process, oriented x 3 Progress - PLAN OF CARE/RESULTS Progress/Plan/Lab Results: Vital Signs - 8 hr 08/02/16 19:51 Temperature 98.4 F Pulse Rate 92 H Respiratory Rate 18 Blood Pressure 129/66 O2 Sat by Pulse Oximetry 98 Laboratory Results - last 24 hr 08/02/16 08/02/16 20:30 20:30 WBC 9.18 RBC 4.24 Hgb 13.2 Hct 38.6 MCV 91.0 MCH 31.1 H MCHC 34.2 RDW Std Deviation 12.2 Plt Count 208 MPV 9.9 Immature Gran % (Auto) 0.0 Neut % (Auto) 59.8 Lymph % (Auto) 28.1 [place] % (Auto) 8.9 Eos % (Auto) 2.9 Baso % (Auto) 0.3 Immature Gran # (Auto) 0.00 Neut # (Auto) 5.48 Lymph # (Auto) 2.58 [place] # (Auto) 0.82 H Eos # (Auto) 0.27 Baso # (Auto) 0.03 ESR 9 Sodium 139 Potassium 4.2 Chloride 99 Carbon Dioxide 25 Anion Gap 15 BUN 16 Creatinine 0.7 Estimated GFR/1.73 m2 > 60 BUN/Creatinine Ratio 23 Glucose 115 H Calculated Osmolality 280 Calcium 9.4 Total Bilirubin 0.45 AST 37 H ALT 89 H Alkaline Phosphatase 49 C-Reactive Prot, Quant 83.29 H Total Protein 7.5 Albumin 3.9 Globulin 3.6 Albumin/Globulin Ratio 1.1 Lipase 20 Orders Category Date Time Status CT ABD/PELVIS W/ IV CONT ONLY [CT] Stat Exams 08/02/16 20:21 Taken CBC WITH ELECTRONIC DIFF [HEME] Stat Lab 08/02/16 20:30 Completed CMP [COMPREHENSIVE METABOLIC PANEL] [CHEM] Stat Lab 08/02/16 20:30 Completed CRP [C REACTIVE PROT QUANT] [CHEM] Stat Lab 08/02/16 20:30 Completed LIPASE [CHEM] Stat Lab 08/02/16 20:30 Completed SED RATE [HEME] Stat Lab 08/02/16 20:30 Completed 0.9% Sodium Chloride Inj [Ns] 1,000 ml Med 08/02/16 20:22 Discontinued IV 999 mls/hr Acetaminophen [Ofirmev 1000 mg/Isotonic Soln] Med 08/02/16 22:02 Active 1,000 mg in 100 ml IV NOW Hydromorphone [Dilaudid] Med 08/02/16 21:31 Discontinued 1 mg IV NOW ONE Hydromorphone [Dilaudid] Med 08/02/16 22:01 Discontinued 1 mg IV NOW ONE Levofloxacin 750 mg/D5w [Levaquin 750 mg/D5w] Med 08/02/16 22:12 Active 750 mg in 150 ml IV NOW Metronidazole 500 mg/Ns [Flagyl 500 mg/Ns] Med 08/02/16 22:13 Active 500 mg in 100 ml IV NOW Ondansetron [Zofran] Med 08/02/16 20:22 Discontinued 4 mg IV NOW ONE Result Diagrams: 08/08/16 06:00 08/08/16 06:00 Departure - Departure Time of Disposition Decision: 00:48 DIAGNOSIS: Diverticulitis large intestine Qualifiers: Diverticulitis bleeding: without bleeding Diverticulitis complication: without perforation or abscess Qualified Code(s): K57.32 - Diverticulitis of large intestine without perforation or abscess without bleeding Disposition: ADMITTED INPATIENT 09 Certified Medical Emergency: Emergent Condition: Stable - Critical Care Note This patient required my direct & personal management of CC.: No This chart was documented by the indicated scribe, (Leann Stockton Scribe) and accurately reflects the services I performed and decisions made by me, Fab Teran MD, as attested by the provider's signature.
== END 2016-08-08 17:01 | disposition home or self-care (01) ==
LOC: ED 19:37 → 3N 22:39 → SUATTDRO 22:39
PROVIDERS: ATTEND Internal Medicine

== ENCOUNTER 2018-08-14 18:30 | Inpatient (IN) ==
[2018-08-14] MEDS ORDERED: ASPIRIN PO ONE (18:43)
[2018-08-14 18:58] LABS: BASO# 0.03 X1000 (0.0-0.2); BASO% 0.3 % (0.0-0.8); EOS# 0.04 X1000 (0.0-0.7); EOS% 0.4 % (0.0-10.0); HEMATOCRIT 41.6 % (37.0-47.0); HEMOGLOBIN 13.9 g/dL (12.0-16.0); IMM GRAN# 0.04 X1000 (0.0-0.04); IMM GRAN% 0.4 % (0.0-0.5); LYMPH# 2.39 X1000 (1.2-3.4); LYMPH% 23.1 % (20.5-51.1); MCH 29.8 PG (27-31); MCHC 33.4 g/dL (33-37); MCV 89.3 FL (81-99); MONO# 0.72 X1000 (0.11-0.59); NEUT# 7.11 X1000 (1.4-6.5); NEUT% 68.8 % (42.2-75.2); PLT 192 X1000 (130-400); RBC 4.66 XMIL (4.2-5.4); WBC 10.33 X1000 (4.8-10.8)
[2018-08-14 19:08] LABS: INR 0.91
[2018-08-14 19:09] LABS: PTT 26.8 Seconds (22.3-41.8)
[2018-08-14 19:18] LABS: AGAP 16; ALB/GLOB RATIO 1.3; ALBUMIN 4.5 g/dL (3.5-5.0); ALKALINE PHOSPHATASE 64 U/L (32-104); BUN 9 mg/dL (8-22); CALCIUM 9.9 mg/dL (8.8-10.2); CHLORIDE 97 mmol/L (98-107); CK PROFILE 43 U/L (24-173); COSMO 271; CREATININE 0.6 mg/dL (0.5-0.9); ESTIMATED GFR > 60; GLUCOSE 147 mg/dL (70-104); GOT 21 U/L (10-30); GPT 34 U/L (10-36); POTASSIUM 4.2 mmol/L (3.5-5.1); SODIUM 135 mmol/L (136-145); TCO2 22 mmol/L (25-35); TOTAL BILIRUBIN 0.23 mg/dL (0.20-1.00); TOTAL PROTEIN 8.1 g/dL (6.3-8.3)
--- NOTE | 2018-08-14 19:42 | Diag Imaging Result Doc PS360 ---
CHEST-2 VIEWS - 08/14/2018 INDICATION: chest pain COMPARISON: 08/07/2018 FINDINGS: Stable left chest port in good position. Stable minimal atelectasis or scarring in the left lung base. No infiltrates. Heart size and pulmonary vascularity is normal. IMPRESSION: No acute disease or change from prior. Electronically signed by Immanuel Ritter 08/14/2018 7:40 PM
[2018-08-15] MEDS ORDERED: NITROGLYCERIN TOP ONE (01:03)
--- NOTE | 2018-08-15 02:18 | PROVIDER DOCUMENTATION ---
This chart was entered by Meghan Lerma Scribe, acting as scribe for Winter Batista MD. HPI-Chest Pain - General Chief Complaint: Chest Pain Stated Complaint: CHEST PAIN/SOB/NAUSEA-HX OF HRT ATTACK Time Seen by Provider: 08/14/18 19:10 Source: patient Allergies/Adverse Reactions: Patient Allergies Allergy/AdvReac Type Severity Reaction Status Date / Time albuterol Allergy Intermediate VOMITING Verified 08/14/18 19:19 adhesive Allergy "Pulls my Verified 08/14/18 19:19 skin off" per patient. cefazolin sodium * Allergy ANAPHYLAXIS Verified 08/14/18 19:19 [From Ancef] morphine Allergy NAUSEA/VOMI Verified 08/14/18 19:19 TING oxycodone HCl * Allergy NAUSEA/VOMI Verified 08/14/18 19:19 [From Percocet] TING povidone-iodine Allergy RASH Verified 08/14/18 19:19 [From Betadine] soap * [From Betadine] Allergy RASH Verified 08/14/18 19:19 Home Medications: Home Medication List Medication Instructions Recorded Confirmed Last Taken Type Furosemide [Lasix] 40 mg PO DAILY 04/30/12 08/14/18 10/01/17 08:00 History Divalproex E.r. [Depakote ER] 500 mg PO HS 04/01/13 08/14/18 10/01/17 22:00 History Losartan [Cozaar] 100 mg PO QHS 04/01/13 08/14/18 10/01/17 22:00 History Dicyclomine HCl [Bentyl] 20 mg PO 4XDAY 04/21/15 08/14/18 10/01/17 22:00 History Aspirin 81 mg PO DAILY #30 chewtab 04/22/15 08/14/18 10/01/17 22:00 Rx Levalbuterol Neb [Xopenex Neb] 1.25 mg IH BID PRN 06/22/16 08/14/18 10/01/17 21:00 History Omeprazole [Prilosec] 40 mg PO BID 09/04/17 08/14/18 10/01/17 20:00 History Promethazine [Phenergan] 25 mg PO Q4H PRN 09/29/17 08/14/18 09/30/17 20:00 History Trazodone HCl 150 mg PO QHS 09/29/17 08/14/18 10/01/17 21:00 History Levalbuterol Inhaler [Xopenex Hfa] 2 puff INH DAILY 09/30/17 08/14/18 10/01/17 20:00 History Bupropion HCl [Bupropion HCl Sr] 1 tab PO DAILY 08/14/18 08/14/18 Unknown History Buspirone [Buspar] 1 tab PO BID 08/14/18 08/14/18 Unknown History Carvedilol [Coreg] 1 tab PO QAM 08/14/18 08/14/18 Unknown History Clonazepam 1 tab PO BID 08/14/18 08/14/18 Unknown History Estrogens, Conjugated [Premarin] 1 tab PO DAILY 08/14/18 08/14/18 Unknown History Hydrocodone/Acetaminophen [[place] 1 tab PO TID 08/14/18 08/14/18 Unknown History 7.5-325 Tablet] Magnesium Oxide [Magnesium] 1 tab PO QAM 08/14/18 08/14/18 Unknown History Methocarbamol 1 tab PO TID 08/14/18 08/14/18 Unknown History Potassium 1 tab PO QAM 08/14/18 08/14/18 Unknown History Ropinirole [Requip] 1 tab PO QHS 08/14/18 08/14/18 Unknown History - History of Present Illness-CP Nature of Presenting Problem: pt is a 52 yr old female presenting with 1 day complaint of chest pain, shortness of breath, nausea pt reports worse with exeertion, pressure/tightness to left chest radiating into left neck, face and arm, pt also reports 1 episode of dizziness yesterday morning while driving and diarrhea x 48hrs. Location: reports: other (left) Chest Pain Radiation: reports: jaw (left), arms (left), neck (left), shoulders (left) Quality of Pain: reports: pressure, tightness Severity in ED: moderate (10/15) Onset/Duration: last night Timing: still present Context/Activities at Onset: reports: light activity Modifying Factors: improves with: exercise (worsens) Associated Symptoms: reports: dizziness, nausea, shortness of breath. denies: vomiting Nitro Today/Relief: no nitro taken today Aspirin Treatment Today: 325 mg x 1, provided by ED Prior Chest Pain/Cardiac Workup: reports: no prior chest pain Similar Symptoms Previously?: No Recently Seen Here or By Another Healthcare Provider: No Review of Systems - Adult - REVIEW OF SYSTEMS - ADULT Constitutional: reports: fatique. denies: fever Eyes: reports: blurred vision. denies: eye pain Ears, Nose, Mouth & Throat: denies: ear pain, sinus problem, throat pain Cardiovascular: reports: chest pain. denies: edema, palpitations, syncope Respiratory: reports: shortness of breath. denies: chronic cough Gastrointestinal: reports: abdominal pain (chronic), diarrhea, nausea, poor appetite. denies: vomiting Genitourinary: reports: no symptoms reported Musculoskeletal: reports: joint pain, neck pain. denies: back pain Integumentary: reports: no symptoms reported Neurological: reports: dizziness/vertigo. denies: headache/migraines, syncope Psychiatric: reports: no symptoms reported Endocrine: reports: no symptoms reported Hematologic/Lymphatic: reports: no symptoms reported Allergic/Immunologic: reports: no symptoms reported All Other Systems: Reviewed and Negative Past History - Adult - PAST MEDICAL HISTORY-ADULT Review of Records: reports: Old Records Reviewed, Nursing Assessment Review, Medications Reviewed, Social history reviewed & non-contributory. Major Childhood Illnesses: reports: denies history Cardiovascular: reports: HTN, other (trigeminy) Respiratory: reports: asthma, COPD Gastrointestinal: reports: Crohn's, colitis, diverticulosis, IBS Obstetrical/Gynecological: reports: denies history Genitourinary: reports: denies history Musculoskeletal: reports: chronic pain Neurological: reports: degenerative disease, TIA, other (sciatica) Psychiatric: reports: anxiety, depression (major) Endocrine/Immune: reports: denies history Other Conditions: reports: denies history, other (hyponatremia) - PRIOR SURGERIES/PROCEDURES Surgical/Procedure History: reports: cholecystectomy, hysterectomy, tonsillectomy, orthopedic (extremity) (Multiple shoulder surgeries, carpal tunnel), joint replacement (knee), other (Right Knee Repair) - PRIOR HOSPITALIZATIONS Prior Hospitalizations: reports: for other non-related - IMMUNIZATION STATUS Childhood Immunizations: See Nurse Assessment Flu Vaccine: See Nurse Assessment - FAMILY HISTORY Family History: reviewed, not pertinent - SOCIAL HISTORY Smoking: quit greater than 1 year Living Situation: family Physical Exam-General - PHYSICAL EXAM-ADULT Initial Vital Signs Reviewed: Yes - CONSTITUTIONAL General Appearance: alert, no apparent distress, obese, anxious - EYES Eyes: PERRL/EOMI - HEAD, EARS, NOSE, MOUTH & THROAT HENMT: normocephalic/atraumatic, moist mucous membranes, normal ENT inspection - NECK Neck: non-tender, full range of motion, supple, normal inspection - RESPIRATORY Respiratory: chest non-tender, lungs clear, normal breath sounds - CARDIOVASCULAR Cardiovascular: normal peripheral pulses, regular rate, rhythm, no edema - GASTROINTESTINAL (ABDOMEN) Abdominal Exam: normal bowel sounds, soft, tenderness (epigastric tenderness-pt reports as chronic) - LYMPHATIC Lymphatic: no adenopathy - MUSCULOSKELETAL Back Exam: normal inspection Extremity: normal range of motion, non-tender, normal gait, normal inspection - SKIN Integumentary: normal color, normal turgor, warm/dry - NEUROLOGIC Neurologic: grossly normal, no motor/sensory deficits - PSYCHIATRIC Psych/Mental Status: normal mood/affect Progress - PLAN OF CARE/RESULTS Progress/Plan/Lab Results: Vital Signs - 8 hr 08/14/18 18:38 08/14/18 19:13 08/14/18 19:18 Temperature 98.3 F Pulse Rate 101 H 96 H 94 H Respiratory Rate 18 19 18 Blood Pressure 180/94 168/89 148/93 O2 Sat by Pulse Oximetry 96 97 97 08/14/18 19:33 08/14/18 19:48 08/14/18 20:03 Temperature Pulse Rate 89 89 85 Respiratory Rate 24 22 21 Blood Pressure 147/82 124/79 140/97 O2 Sat by Pulse Oximetry 95 96 96 08/14/18 20:18 08/14/18 20:33 08/14/18 20:48 Temperature Pulse Rate 87 92 H 90 Respiratory Rate 23 23 24 Blood Pressure 148/91 105/79 158/102 O2 Sat by Pulse Oximetry 94 L 95 96 Laboratory Results - last 24 hr 08/14/18 08/14/18 08/14/18 18:45 18:45 18:45 WBC 10.33 RBC 4.66 Hgb 13.9 Hct 41.6 MCV 89.3 MCH 29.8 MCHC 33.4 RDW Std Deviation 12.0 Plt Count 192 MPV 10.0 Immature Gran % (Auto) 0.4 Neut % (Auto) 68.8 Lymph % (Auto) 23.1 [place] % (Auto) 7.0 Eos % (Auto) 0.4 Baso % (Auto) 0.3 Immature Gran # (Auto) 0.04 Neut # (Auto) 7.11 H Lymph # (Auto) 2.39 [place] # (Auto) 0.72 H Eos # (Auto) 0.04 Baso # (Auto) 0.03 PT INR PTT (Actin FS) D-Dimer, Quantitative Sodium 135 L Potassium 4.2 Chloride 97 L Carbon Dioxide 22 L Anion Gap 16 BUN 9 Creatinine 0.6 Estimated GFR/1.73 m2 > 60 BUN/Creatinine Ratio 15 Glucose 147 H Calculated Osmolality 271 Calcium 9.9 Total Bilirubin 0.23 AST 21 ALT 34 Alkaline Phosphatase 64 Creatine Kinase 43 Troponin T Mar-P-Bobkzfsxxdz Pept 96 Total Protein 8.1 Albumin 4.5 Globulin 3.6 Albumin/Globulin Ratio 1.3 08/14/18 08/14/18 08/14/18 18:45 18:45 18:45 WBC RBC Hgb Hct MCV MCH MCHC RDW Std Deviation Plt Count MPV Immature Gran % (Auto) Neut % (Auto) Lymph % (Auto) [place] % (Auto) Eos % (Auto) Baso % (Auto) Immature Gran # (Auto) Neut # (Auto) Lymph # (Auto) [place] # (Auto) Eos # (Auto) Baso # (Auto) PT 13.0 INR 0.91 PTT (Actin FS) 26.8 D-Dimer, Quantitative 0.87 H Sodium Potassium Chloride Carbon Dioxide Anion Gap BUN Creatinine Estimated GFR/1.73 m2 BUN/Creatinine Ratio Glucose Calculated Osmolality Calcium Total Bilirubin AST ALT Alkaline Phosphatase Creatine Kinase Troponin T < 0.010 [id number]-G-Cumcssonxeo Pept Total Protein Albumin Globulin Albumin/Globulin Ratio 08/14/18 22:15 WBC RBC Hgb Hct MCV MCH MCHC RDW Std Deviation Plt Count MPV Immature Gran % (Auto) Neut % (Auto) Lymph % (Auto) [place] % (Auto) Eos % (Auto) Baso % (Auto) Immature Gran # (Auto) Neut # (Auto) Lymph # (Auto) [place] # (Auto) Eos # (Auto) Baso # (Auto) PT INR PTT (Actin FS) D-Dimer, Quantitative Sodium Potassium Chloride Carbon Dioxide Anion Gap BUN Creatinine Estimated GFR/1.73 m2 BUN/Creatinine Ratio Glucose Calculated Osmolality Calcium Total Bilirubin AST ALT Alkaline Phosphatase Creatine Kinase Troponin T < 0.010 [id number]-Lvqrygocqxb Pept Total Protein Albumin Globulin Albumin/Globulin Ratio Orders Category Date Time Status Cardiac Monitoring DIRECTED Care 08/14/18 18:43 Active Oxygen Therapy- ED Nursing DIRECTED Care 08/14/18 18:43 Active Saline Loc NOW Care 08/14/18 18:43 Active CHEST-2 VIEWS [RAD] Stat Exams 08/14/18 18:[address] ANGIOGRM PULMONARY ARTERIES [CT] Stat Exams 08/14/18 21:29 Taken CBC WITH ELECTRONIC DIFF [HEME] Stat Lab 08/14/18 18:45 Completed CK PROFILE [SP CHEM] Stat Lab 08/14/18 18:45 Completed COMPREHENSIVE METABOLIC PANEL [CHEM] Stat Lab 08/14/18 18:45 Completed D-DIMER [COAG] Stat Lab 08/14/18 18:45 Completed PRO B-NATRIURETIC PEPTIDE Stat Lab 08/14/18 18:45 Completed PROTIME WITH INR [COAG] Stat Lab 08/14/18 18:45 Completed PTT [COAG] Stat Lab 08/14/18 18:45 Completed TROPONIN T Stat Lab 08/14/18 18:45 Completed TROPONIN T Stat Lab 08/14/18 22:15 Completed Aspirin Med 08/14/18 18:43 Discontinued 325 mg PO NOW ONE Nitroglycerin Med 08/15/18 01:03 Discontinued 1 inch TOP NOW ONE CP/SOB/Palp >45 yrs of Age Stat Oth 08/14/18 18:43 Ordered EKG [EKG] Stat Ther 08/14/18 18:43 Ordered Result Diagrams: 08/14/18 18:45 08/14/18 18:45 - EKG 1 Time of EKG reading by physician:: 18:42 EKG Read and Signed by:: Seb Ortiz EKG Interpretation (*Must complete 3 of following elements*): Abnormal (can not rule out anterior infarct-age undetermined) Rate: 101 Rhythm: sinus tachycardia [place]: normal QRS: normal NM Interval: normal ST Wave: normal - XRAY 1 XRAY Study: Chest Impression: Normal ( CHEST-2 VIEWS - 08/14/2018 INDICATION: chest pain COMPARISON: 08/07/2018 FINDINGS: Stable left chest port in good position. Stable minimal atelectasis or scarring in the left lung base. No infiltrates. Heart size and pulmonary vascularity is normal. IMPRESSION: No acute disease or change from prior. Electronically signed by Immanuel Ritter 08/14/2018 7:40 PM 08/14/181939 Interpreting Physician: Immanuel Ritter MD Dictated Date/Time: 08/14/181938 cc: Seb Ortiz MD; Star Haile MD) Comparison with other Films: no changes (08/07/18) - CT/MRI 1 CT Study: Angiogram Impression: Abnormal (no acute PE, no aortic dissection. mild diffuse interlobular septal thickening may reflect chronic interstitial lung disease or acute pulmonary edema) - CONSULTS/PCP/HOSPITALIST Notification #1 *Consult/PCP/Hospitalist*: DR DE LA TORRE Time Discussed: 02:10 Consult Disposition: Admit Departure - Departure Date of Disposition Decision: 08/15/18 Time of Disposition Decision: 02:17 DIAGNOSIS: Chest pain, Dyspnea Disposition: ADMITTED INPATIENT 09 Certified Medical Emergency: Emergent Condition: Stable Referrals and Follow-Ups: Star Haile MD [Primary Care Provider] - - Critical Care Note This patient required my direct & personal management of CC.: No Attestation - Physician/ RICH Attestation Patient care was provided by Advanced Practice Provider:: No The physician spent face to face time with patient:: Yes Advanced Practice Provider documentation review:: Supervising physician onsite and consulted in the evaluation and care of this patient. The physician did have a face to face encounter with the patient. This chart was documented by the indicated scribe, (Meghan Lerma Scribe) and accurately reflects the services I performed and decisions made by me, Winter Batista MD, as attested by the provider's signature.
[2018-08-15] MEDS ORDERED: PHENERGAN PO PRN (02:56)
[2018-08-15] MEDS ORDERED: XOPENEX NEB INH PRN (02:56)
[2018-08-15] MEDS ORDERED: ZOFRAN IV PRN (03:00)
--- NOTE | 2018-08-15 04:17 | HISTORY AND PHYSICAL ---
PRIMARY CARE PROVIDER: Star Haile MD CHIEF COMPLAINT: Chest pain. HISTORY OF PRESENT ILLNESS: Ms. Westbrook is a 52-year-old female with a history of ulcerative colitis, diverticulosis, asthma, hypertension, anxiety, depression, an apparent history of a myocardial infarction around 10 years ago and TIAs x2 who comes in tonight with chest pain that started not yesterday, but the day before around midnight. She stated that earlier that day she had had an episode where she felt kind of dizzy. She went that afternoon to [place] and had epidural blocks placed in her back related to chronic back pain. She woke up that night around midnight having chest pain in her left chest that radiated down into her abdomen and her left arm up into her neck. She stated that she was very diaphoretic. She took 2 aspirins and laid down. She continued to have chest pains that day, so she came in later that afternoon to the emergency room. Initial cardiac enzymes were negative in the emergency room. She will be admitted for further evaluation and treatment. PAST MEDICAL HISTORY: See HPI. PREVIOUS SURGICAL HISTORY: 1. Cholecystectomy. 2. Hysterectomy. 3. Right shoulder surgery x 7. 4. Left knee surgery. 5. Tonsillectomy. 6. Carpal tunnel release. 7. Port-A-Cath placement. SOCIAL HISTORY: Was a smoker for multiple years of around 1/2 pack a day, quit around a year ago. Denies alcohol or illicit drugs. She has been from her for 17 years, has 2 children who no longer live at home. She lives alone and is disability. FAMILY HISTORY: Significant for malignancy, diabetes and hypertension. ALLERGIES: Albuterol, adhesives, cefazolin, morphine, oxycodone, povidine- iodine. HOME MEDICATIONS: 1. Lasix 40 mg p.o. daily. 2. Depakote extended release 500 mg p.o. at bedtime. 3. Cozaar 100 mg p.o. at bedtime. 4. Bentyl 20 mg p.o. 4 times daily. 5. Aspirin 81 mg p.o. daily. 6. Xopenex 1.25 mg inhalation b.i.d. p.r.n. 7. Omeprazole 40 mg p.o. b.i.d. 8. Phenergan 25 mg p.o. q.4 p.r.n. 9. Trazodone 150 mg p.o. at bedtime. 10.Xopenex rescue inhaler. 11.BuSpar 50 mg p.o. b.i.d. 12.Coreg 6.25 mg p.o. q.a.m. 13.Klonopin 0.5 mg p.o. b.i.d. 14.Magnesium 400 mg p.o. q.a.m. 15.Methocarbamol 750 mg p.o. t.i.d. 16.Ropinirole 1 tablet p.o. at bedtime. 17.Premarin 0.9 mg tablet, 1 p.o. daily. 18.Bupropion 150 mg, 1 p.o. daily. 19.[place] 7.5, 1 p.o. t.i.d. 20.Potassium 99 mg, 1 p.o. daily. REVIEW OF SYSTEMS: A 14-point review of systems conducted with the patient. She denied nausea or vomiting, positive for diarrhea for the past few days. All other pertinent positives listed above in the HPI. All other systems reviewed and found to be negative. PHYSICAL EXAMINATION: VITAL SIGNS: Temperature 98.3, pulse 90, respirations 24, blood pressure 158/102, oxygen saturation 96% on room air. GENERAL: A 52-year-old female lying in the ER stretcher, answers all questions appropriately. She is alert and oriented x3, is in no acute distress. HEENT: Head is atraumatic, normocephalic. Pupils equal, round and reactive to light. Extraocular eye movements are intact. Sclerae are anicteric. Conjunctivae are pink. Oral mucosa is moist. NECK: Supple. No JVD. No thyromegaly. Trachea is midline. No cervical lymphadenopathy. CARDIAC: S1, S2 appreciated. No murmurs, gallops or rubs. LUNGS: Clear to auscultation bilaterally. No rhonchi, wheezes or rales. Symmetric rise and fall with respirations. ABDOMEN: Soft, nondistended and nontender. Bowel sounds present in all 4 quadrants. No pulsatile masses. No organomegaly. EXTREMITIES: No cyanosis, clubbing or edema; 2+ pedal pulses bilaterally. GENITOURINARY: No bladder distention. The patient voids. Otherwise deferred. NEUROLOGICAL: Alert and oriented x3. Cranial nerves II-XII appear to be grossly intact. DIAGNOSTIC DATA: CTA showed no pulmonary embolism per ER provider; official report is still pending. Chest x-ray: No acute disease. LABORATORY DATA: CBC within normal limits. Coagulations within normal limits. D-dimer 07.87. Sodium 135, potassium 4.2, chloride 97, carbon dioxide 22, BUN 9, creatinine 0.6, glucose 147. CK 43. Troponin negative x2 sets. ASSESSMENT AND PLAN: 1. Chest pain, rule out acute myocardial infarction. Will trend cardiac enzymes. Order stress test for tomorrow. Patient states that she has had myocardial infarction in the past. She was a smoker for multiple years. Will check a lipid profile. Will start on atorvastatin 40 mg p.o. at bedtime. Continue aspirin daily. Nitroglycerin 1 inch transdermally q.6 hours. 2. Ulcerative colitis. Aware. Continue patient's home medications. 3. Anxiety and depression. Continue home medications. 4. Hypertension. Continue on medications. Will add nitroglycerin as noted above q.6 hours. 5. History of asthma and chronic obstructive pulmonary disease. Will continue patient's Xopenex nebulizers. 6. Further recommendations per the patient's clinical course. Dictated by ANNABELLA Brown for Jovan Galo MD cc: ANNABELLA Brown MD David Francis, MD Independent and exam assessment was performed by me. Overall clinical examination was essentially benign above plan discussed with [employer] and family. MONE
[2018-08-15] MEDS: NITROGLYCERIN TOP SCH ×4 (05:34→20:25)
[2018-08-15] MEDS: LOVENOX SUBQ SCH (05:34)
[2018-08-15] MEDS: NORCO-7.5 PO PRN ×2 (05:49→16:08)
--- NOTE | 2018-08-15 06:58 | EKG Report ---
Test Performed on : 08/14/2018 6:42:00 PM Test Reason : chest pain Blood Pressure : / mmHG Vent. Rate : 101 BPM Atrial Rate : 101 BPM P-R Int : 184 ms QRS Dur : 076 ms QT Int : 344 ms P-R-T Axes : 064 -21 027 degrees QTc Int : 446 ms Sinus tachycardia. Cannot rule out Anterior infarct , age undetermined Abnormal ECG When compared with ECG of 07-AUG-2018 16:08, (Unconfirmed) No significant change was found Unconfirmed Result
--- NOTE | 2018-08-15 07:24 | Diag Imaging Result Doc PS360 ---
EXAM: CT ANGIOGRM PULMONARY ARTERIES INDICATION: elevated d-dimer, chest pain TECHNIQUE: This exam was performed using automated exposure control, adjustment of mA or kV according to patient size, and/or use of iterative reconstruction technique. Thin section axial images and 3-D MIPS were obtained. COMPARISON: 09/04/2017 FINDINGS: There is no evidence of pulmonary embolism. There is no evidence of aortic dissection or aneurysm. There is no cardiomegaly. There are calcified mediastinal and hilar lymph nodes indicating prior granulomatous disease. There is no significant lymphadenopathy, otherwise. There is mild subsegmental atelectasis and/or scarring in the left lower lobe and the lingula. There is a punctate noncalcified lung nodule in the anterior right upper lobe on image 60 of series 5 that is stable and very likely represents a granuloma. There is questionable very minimal interstitial thickening bilaterally that is essentially stable and may represent very mild chronic interstitial lung disease. There is no pleural fluid collection and no pneumothorax. Limited views of the upper abdomen reveals hepatic steatosis. IMPRESSION: 1.Minimal subsegmental atelectasis and/or scarring at the left lower lung zone. 2.Questionable very mild interstitial thickening bilaterally which may indicate minimal chronic interstitial lung disease. 3.No evidence of pulmonary embolism. Electronically signed by Angelito Mccloud 08/15/2018 7:22 AM
--- NOTE | 2018-08-15 08:14 | EKG Report ---
Test Performed on : 08/15/2018 07:48:44 AM Test Reason : CP Blood Pressure : / mmHG Vent. Rate : 071 BPM Atrial Rate : 071 BPM P-R Int : 184 ms QRS Dur : 092 ms QT Int : 414 ms P-R-T Axes : 077 051 069 degrees QTc Int : 449 ms Normal sinus rhythm. Normal ECG When compared with ECG of 14-AUG-2018 18:42, (Unconfirmed) No significant change was found Confirmed by Luis Eduardo RIVERA, Warren Naranjo ([id number]) on 08/15/2018 9:06:53 AM
[2018-08-15] MEDS ORDERED: NORCO-7.5 PO PRN (09:00)
[2018-08-15] MEDS ORDERED: ROBAXIN PO SCH (09:00)
[2018-08-15] MEDS ORDERED: LEXISCAN ONE (09:22)
[2018-08-15] MEDS: BENTYL PO SCH ×4 (10:19→20:24)
[2018-08-15] MEDS: MAG-OX PO SCH (11:53)
[2018-08-15] MEDS: BUSPAR PO SCH ×2 (11:53→20:24)
[2018-08-15] MEDS: PRILOSEC PO SCH ×2 (11:53→20:23)
[2018-08-15] MEDS: ASPIRIN PO SCH (11:53)
[2018-08-15] MEDS: COREG PO SCH (11:53)
[2018-08-15] MEDS: KLONOPIN PO SCH ×2 (11:53→20:23)
[2018-08-15] MEDS: PREMARIN PO SCH (13:12)
--- NOTE | 2018-08-15 15:14 | PROGRESS NOTE ---
DATE: 08/15/2018 SUBJECTIVE: The patient was admitted early this morning. She is a patient of Dr. Star Whiting. Admitted for chest pain. Ms. Westbrook is a 52-year-old with history of ulcerative colitis, diverticulosis, asthma, hypertension, anxiety, depression, apparently history of myocardial infarction around 10 years ago. She reports she has had 2 TIAs. Came in on 08/15/2018 with chest pain. She had an episode where she felt a little dizzy. She had gone that afternoon to [place] and had epidural blocks put in her back for chronic back pain. Woke up around midnight having chest pain at the left chest radiating to her abdomen and her left arm and up into her neck. Stated that she was diaphoretic. She took 2 aspirins and laid down. Initial cardiac enzymes were negative in the emergency room. SURGICAL HISTORY: 1. Cholecystectomy. 2. Hysterectomy. 3. Right shoulder surgery x7. 4. Left knee surgery. 5. Tonsillectomy. 6. Carpal tunnel syndrome. 7. Port-A-Cath placement. So, admitted with chest pain, it sounded atypical. Cardiac enzymes unremarkable. She had a pulmonary angiogram, minimal subsegmental atelectasis, scarring in the left lower lung zone, questionable. Very mild interstitial thickening bilaterally which may indicate minimal chronic interstitial lung disease. No evidence of pulmonary embolism. Her chest x-ray with no acute disease or change. EKG shows sinus tachycardia. I did not see any suspicious ST-segment changes. OBJECTIVE: General: She reports that she is feeling a little better than yesterday. She was sleeping and sleeping well. Breathing comfortably. Vital Signs: Temperature 97.8 degrees, pulse 89, respirations 18, blood pressure 143/86. HEENT: Pupils are equal and round. Lungs: Clear in all lung iniguez. Cardiovascular: Regular rhythm and rate without murmur or S3. Abdomen: Soft. Skin: Warm and dry. LABORATORY DATA: Reviewed labs. Really completely unremarkable. Cardiac enzymes negative. REVIEW OF ORDERS: She is on Lipitor 40 mg at bedtime, Cozaar 400 mg at bedtime, Requip 1 mg at bedtime, trazodone 150 mg at bedtime, aspirin 81 mg a day, BuSpar 15 mg b.i.d., Coreg 6.25 mg in the morning, Klonopin 0.5 mg b.i.d., Depakote ER 500 mg at bedtime, conjugated estrogen 0.5 mg p.o. daily, omeprazole 40 mg b.i.d., aspirin 325 mg a day. cc: Milton Sheffield MD
--- NOTE | 2018-08-15 16:21 | Diag Imaging Result Document ---
PROCEDURE NAME: MYOCARDIAL PERF SCAN, STR/REST - 08/15/2018 PROCEDURE: Lexiscan sestamibi interpretation. SUMMARY: The patient was administered 16.0 mCi of technetium 99-m sestamibi after which resting cardiac images were obtained. The patient was subsequently administered Lexiscan 0.4 mg intravenously after which the heart rate went from 74 beats per minute to 83 beats per minute, and the blood pressure went from 166/102 to 148/80. With Lexiscan, the patient denied chest discomfort. Following the administration of Lexiscan, the patient was administered 46.6 mCi of technetium 99-m sestamibi after which gated stress cardiac images were obtained. Baseline ECG demonstrated normal sinus rhythm and was within normal limits. With Lexiscan, there were no diagnostic ST-segment changes. SPECT images were reconstructed in the short, horizontal, long, and vertical long axis. Review of these images demonstrated a small area of mild to moderate diminished activity in the apical anteroseptal region left ventricle and stress images, which appear similar on resting images. No significant reversibility is evident. Gated images demonstrate a calculated left ventricular ejection fraction of 73% with symmetrical wall motion/thickening. CONCLUSIONS: 1. Adequate response to Lexiscan. 2. Clinically negative for chest pain. 3. Electrocardiographically negative for Lexiscan-induced myocardial ischemia. 4. Lexiscan sestamibi images demonstrate small region of non reversible mild to moderate diminished activity in the apical anteroseptal region with corresponding preserved regional wall motion probably due to soft tissue attenuation artifact. There is no scintigraphic evidence of inducible myocardial ischemia. Normal left ventricular systolic function demonstrated. cc: MD Rafaela Holley CRNP
[2018-08-15] MEDS ORDERED: REQUIP PO SCH (21:00)
[2018-08-15] MEDS ORDERED: DEPAKOTE ER PO SCH (21:00)
[2018-08-15] MEDS ORDERED: LIPITOR PO SCH (21:00)
[2018-08-15] MEDS ORDERED: DESYREL PO SCH (21:00)
[2018-08-15] MEDS ORDERED: COZAAR PO SCH (21:00)
[2018-08-16] MEDS: LOVENOX SUBQ SCH (02:13)
[2018-08-16] MEDS: NITROGLYCERIN TOP SCH ×2 (02:13→08:19)
[2018-08-16] MEDS: NORCO-7.5 PO PRN (02:13)
[2018-08-16 07:44] LABS: BASO# 0.05 X1000 (0.0-0.2); BASO% 0.5 % (0.0-0.8); EOS# 0.13 X1000 (0.0-0.7); EOS% 1.4 % (0.0-10.0); HEMOGLOBIN 14.1 g/dL (12.0-16.0); LYMPH% 30.4 % (20.5-51.1); MCH 29.7 PG (27-31); MCHC 32.8 g/dL (33-37); MCV 90.7 FL (81-99); MONO# 1.07 X1000 (0.11-0.59); MONO% 11.6 % (1.7-9.3); NEUT# 5.16 X1000 (1.4-6.5); NEUT% 56.1 % (42.2-75.2); PLT 211 X1000 (130-400); RBC 4.74 XMIL (4.2-5.4); RDW 12.5 % (11.5-14.5); WBC 9.21 X1000 (4.8-10.8)
[2018-08-16 08:17] VITALS: BP 127/82
[2018-08-16] MEDS: PRILOSEC PO SCH (08:18)
[2018-08-16] MEDS: BENTYL PO SCH (08:18)
[2018-08-16] MEDS: PREMARIN PO SCH (08:18)
[2018-08-16] MEDS: BUSPAR PO SCH (08:18)
[2018-08-16] MEDS: ASPIRIN PO SCH (08:18)
[2018-08-16] MEDS: COREG PO SCH (08:18)
[2018-08-16] MEDS: KLONOPIN PO SCH (08:18)
[2018-08-16 08:19] LABS: AGAP 11; BUN 15 mg/dL (8-22); CALCIUM 9.6 mg/dL (8.8-10.2); CHLORIDE 100 mmol/L (98-107); COSMO 277; CREATININE 0.6 mg/dL (0.5-0.9); ESTIMATED GFR > 60; GLUCOSE 106 mg/dL (70-104); POTASSIUM 4.5 mmol/L (3.5-5.1); SODIUM 138 mmol/L (136-145); TCO2 27 mmol/L (25-35)
[2018-08-16] MEDS: MAG-OX PO SCH (08:19)
--- NOTE | 2018-08-16 11:47 | DISCHARGE SUMMARY ---
ADMISSION DATE: 08/15/2018 DISCHARGE DATE: 08/16/2018 HOSPITAL COURSE: Came in with chest pain. She has a history of ulcerative colitis, diverticulitis, asthma, hypertension, anxiety, depression, apparently history of myocardial infarction about 10 years ago, and TIA's x2 by her report. She came in tonight stating she had chest pain. It is really under the left axilla. Started the day before. Stated that earlier in the day, she had an episode where she felt kind of dizzy, went to spend the afternoon in [place], had epidural blocks placed in her back secondary to chronic back pain. Woke up that night around midnight having chest pain, left chest, seemed to radiate down to her abdomen, left arm and into her back. Says she was very diaphoretic, took 2 aspirin, laid down, continued to have chest pains. Came in later in the afternoon to the emergent department. Initial cardiac enzymes were negative. She was admitted for evaluate. PAST MEDICAL HISTORY: Cholecystectomy, hysterectomy, right shoulder surgery x7, left knee surgery, tonsillectomy, carpal tunnel syndrome, Port-A-Cath placement. She underwent myocardial perfusion scan on 08/15; adequate response to Lexiscan, clinically negative. Lexiscan sestamibi demonstrated a small region of non reversible mild to moderate activity apical anteroseptal region corresponding preserved regional wall motion, suspect attenuation, but looked good. LABS: All of her lab look good. Electrolytes: Creatinine was 0.6. Looked at cholesterol and LDH was 42, triglyceride is 65, total cholesterol 119. PLAN: We will let her go home. I do not see evidence of cardiac ischemia. Want her to follow up with primary care. If she has more of these spells, we may have to be more aggressive. At this point, I do not have indications for heart catheterization. DISCHARGE MEDICATIONS: She is on aspirin 81 mg a day, Lipitor 40 mg a day, BuSpar 15 mg b.i.d., Coreg 6.25 mg q.a.m., Klonopin 0.5 mg b.i.d., Benadryl 20 mg four times a day p.r.n., Depakote ER 500 mg at bedtime. I think she is on Desyrel 150 mg at bedtime and Lasix she takes 40 mg a day, estrogen conjugated Premarin 1 tablet daily, Cozaar 100 mg at bedtime, methyl carbinol 1 tablet t.i.d., Prilosec 40 mg b.i.d., potassium she takes once a day, Requip 1 tablet at bedtime. cc: Milton Sheffield MD
== END 2018-08-16 11:48 | disposition home or self-care (01) | DRG 313 ==
LOC: ED 18:30 → 3N 08-15 03:45 → SUATTDRO 08-15 03:45
PROVIDERS: ATTEND Emergency Medicine
CPT/HCPCS: 71020; 71046; 71275; 78452; 80048; 80053; 80061; 82550; 83721; 83880; 84484; 85025; 85379; 85610; 85730; 93005; 93010; 93017; 94640; 99285; A9270; A9500; J1650; J2785; Q9967

== ENCOUNTER 2019-02-03 07:53 | Inpatient (IN) ==
--- NOTE | 2019-01-28 10:51 | EKG Report ---
Test Performed on : 01/28/2019 10:29:02 AM Test Reason : PAT Blood Pressure : / mmHG Vent. Rate : 086 BPM Atrial Rate : 086 BPM P-R Int : 194 ms QRS Dur : 092 ms QT Int : 386 ms P-R-T Axes : 074 048 064 degrees QTc Int : 461 ms Normal sinus rhythm. Normal ECG When compared with ECG of 13-NOV-2018 17:25, No significant change was found Confirmed by Severino RIVERA, Ronan Rodrigues ([id number]) on 01/29/2019 8:59:31 AM
[2019-01-28 11:16] LABS: URINE SOURCE CLEAN CATCH
[2019-01-28 11:30] LABS: BILIRUBIN URINE NEGATIVE (NEGATIVE); BLOOD URINE NEGATIVE (NEGATIVE); COLOR YELLOW; GLUCOSE URINE NEGATIVE (NEGATIVE); INR 0.99; KETONE URINE NEGATIVE (NEGATIVE); LEUKOCYTES URINE NEGATIVE (NEGATIVE); NITRITE URINE NEGATIVE (NEGATIVE); PH URINE 5.5; PROTEIN URINE NEGATIVE (NEGATIVE); PROTIME 13.2 Seconds (11.0-16.0); SP GRAVITY URINE 1.014; TURBIDITY URINE CLEAR (CLEAR); UROBILINOGEN URINE NORMAL (NORMAL)
[2019-01-28 11:32] LABS: BASO# 0.04 X1000 (0.0-0.2); BASO% 0.7 % (0.0-0.8); EOS# 0.32 X1000 (0.0-0.7); EOS% 5.8 % (0.0-10.0); HEMOGLOBIN 12.5 g/dL (12.0-16.0); LYMPH# 2.48 X1000 (1.2-3.4); LYMPH% 44.6 % (20.5-51.1); MCH 29.4 PG (27-31); MCHC 32.1 g/dL (33-37); MCV 91.8 FL (81-99); MONO# 0.55 X1000 (0.11-0.59); MONO% 9.9 % (1.7-9.3); MPV 9.9 FL (7.4-10.4); NEUT# 2.17 X1000 (1.4-6.5); PLT 207 X1000 (130-400); RBC 4.25 XMIL (4.2-5.4); RDW 12.6 % (11.5-14.5); UR EPITHELIAL CELLS <10 /HPF (<10); URINE BACTERIA NEGATIVE /HPF; URINE RBC <10 /HPF (<10); URINE WBC <10 /HPF (<10); WBC 5.56 X1000 (4.8-10.8)
[2019-01-28 12:01] LABS: AGAP 15; BUN 11 mg/dL (8-22); CALCIUM 9.1 mg/dL (8.8-10.2); CHLORIDE 99 mmol/L (98-107); COSMO 275; CREATININE 0.8 mg/dL (0.5-0.9); ESTIMATED GFR > 60; GLUCOSE 101 mg/dL (70-104); POTASSIUM 4.2 mmol/L (3.5-5.1); SODIUM 138 mmol/L (136-145); TCO2 24 mmol/L (25-35)
[2019-01-28 12:05] LABS: HEMOGLOBIN A1C 5.4 % (4.8-6.0)
[2019-02-03] MEDS ORDERED: COLACE ONE (08:16)
[2019-02-03] MEDS ORDERED: PEPCID ONE (08:17)
[2019-02-03] MEDS ORDERED: REGLAN ONE (08:17)
[2019-02-03] MEDS ORDERED: LYRICA ONE (08:18)
[2019-02-03] MEDS ORDERED: CELEBREX ONE (08:18)
[2019-02-03] MEDS ORDERED: LR 1,000 ML ONE (08:18)
[2019-02-03] MEDS ORDERED: KEFZOL 1 GM/D5W 0 GM/0 ML IVPB ONE (08:18)
[2019-02-03] MEDS ORDERED: VANCOMYCIN 1 GM/NS 1 GM/250 ML IVPB IV ONE ×2 (08:30→22:00)
[2019-02-03] MEDS ORDERED: SODIUM CHLORIDE 0.9% 10 ML ONE (08:46)
[2019-02-03] MEDS ORDERED: DIPRIVAN 1% 500 MG/50 ML BOTTLE ONE (08:59)
[2019-02-03] MEDS ORDERED: VERSED ONE (09:02)
[2019-02-03] MEDS ORDERED: SODIUM CHLORIDE 0.9% ONE (09:17)
[2019-02-03] MEDS ORDERED: CYKLOKAPRON 1,000 MG/NS 2,000 MG/200 ML IVPB ONE (09:17)
[2019-02-03] MEDS ORDERED: MARCAINE 0.25% PF/EPI 1:200,000 ONE (09:17)
[2019-02-03] MEDS ORDERED: DURAMORPH ONE (09:17)
[2019-02-03] MEDS ORDERED: TORADOL ONE (09:17)
[2019-02-03] MEDS ORDERED: VANCOMYCIN ONE (09:17)
[2019-02-03] MEDS ORDERED: EXPAREL 1.3% ONE (09:18)
[2019-02-03] MEDS ORDERED: FENTANYL ONE (10:08)
[2019-02-03] MEDS ORDERED: DECADRON ONE (10:46)
[2019-02-03] MEDS ORDERED: OFIRMEV 1000 MG/ISOTONIC SOLN 1,000 MG/100 ML BOTTLE ONE (10:46)
[2019-02-03] MEDS ORDERED: ZOFRAN ONE (10:46)
[2019-02-03] MEDS ORDERED: XYLOCAINE-MPF 2% ONE ×2 (10:46→10:59)
[2019-02-03 10:56] LABS: URINE SOURCE CATH
[2019-02-03 11:10] LABS: BILIRUBIN URINE NEGATIVE (NEGATIVE); BLOOD URINE NEGATIVE (NEGATIVE); COLOR YELLOW; GLUCOSE URINE NEGATIVE (NEGATIVE); KETONE URINE NEGATIVE (NEGATIVE); LEUKOCYTES URINE NEGATIVE (NEGATIVE); NITRITE URINE NEGATIVE (NEGATIVE); PH URINE 5.5; PROTEIN URINE NEGATIVE (NEGATIVE); SP GRAVITY URINE 1.021; TURBIDITY URINE CLEAR (CLEAR); UROBILINOGEN URINE NORMAL (NORMAL)
[2019-02-03 11:11] LABS: UR EPITHELIAL CELLS <10 /HPF (<10); URINE BACTERIA NEGATIVE /HPF; URINE RBC <10 /HPF (<10); URINE WBC <10 /HPF (<10)
[2019-02-03] MEDS ORDERED: NS 1,000 ML ONE (12:10)
--- NOTE | 2019-02-03 12:28 | OPERATIVE NOTE ---
PROCEDURE DATE: 02/03/2019 PREOPERATIVE DIAGNOSIS: Degenerative joint disease, left knee. POSTOPERATIVE DIAGNOSIS: Degenerative joint disease, left knee. PROCEDURE PERFORMED: Left total knee replacement. SURGEON: Marco A Sutherland MD. MEDICAL SALES CONSULTANT: ANNABELLA Ro. Ms. Gunderson was necessary for proper retraction and manipulation of the extremity during the case. ANESTHESIA: Spinal. COMPLICATIONS: None. PROCEDURE IN DETAIL: This 53-year-old female presents for a left knee replacement. Risks, benefits, and no guarantees were discussed and she is willing to proceed. She was taken to the operating room and satisfactory anesthesia obtained. The left knee was prepped and draped in the usual sterile fashion. A time-out was taken to confirm operative site, procedure, and patient. The leg was wrapped with an Esmarch and tourniquet inflated to 300 mmHg. A midline incision was made over the front of the knee, followed by a quad tendon sparing arthrotomy. The patella was everted and resurfaced with freehand technique and subluxed laterally. With the knee flexed, an intramedullary hole was made in the distal femur and the distal femoral cutting block was secured in 5 degrees of valgus. The distal femoral resection was made and the femur sized to a size 4 Attune femoral implant. The 4-in-1 block was secured, and the anterior, posterior, and chamfer cuts sequentially made. Any remaining osteophytes were debrided off the femur and the PCL was retained. The knee was flexed and a PCL retractor placed behind the tibia to protect the PCL and neurovascular bundle. The tibial cutting block was secured with extramedullary alignment and the tibial resection made. Flexion and extension gaps were slightly tight with a 5 mm spacer, so an additional 2 mm was taken off the tibia with good soft tissue balance. Slight lateral tightness was noted. A popliteus release corrected this with even soft tissue balance. The tibia was sized to a size 5 tibial tray. A trial reduction was performed with a size 5 tibial tray, a 5 mm thick rotating platform cruciate retaining poly, and a size 4 standard with femur. Good range of motion from full extension to 120 degrees of flexion was noted. The patella was sized to a 35 medialized dome patella. Midline patellar tracking was noted. The lug holes were placed for the femoral and patellar implants, and the trial components removed. The bony surfaces were thoroughly irrigated with pulsatile lavage. Cement with a gram of vancomycin was utilized to cement a size 5 rotating platform tibial baseplate, a size 4 left standard width cruciate retaining femoral component, and a 35 medialized dome patella. Excess cement was removed with a [place] elevator. The joint capsule was injected with Exparel and a Hemovac drain placed while the cement cured. After curing the cement, a size 4, 5 mm thick CR bearing was placed in the tibial tray and the knee reduced. Final range of motion was 0 to 130 degrees with midline patellar tracking. The arthrotomy was copiously irrigated with irrigant. It was closed over the drain with #1 Vicryl in the arthrotomy, 2-0 Vicryl in the subcutaneous, and skin aida on the skin edges. Sterile dressings completed the closure and the patient was recovered from anesthesia and transferred to the recovery room in stable condition. No intraoperative complications were noted. Instrument count and sponge count were correct at the time of closure. cc: Angelito Sutherland MD
[2019-02-03] MEDS ORDERED: OXY IR PO PRN (12:45)
[2019-02-03] MEDS ORDERED: DILAUDID IV PRN (12:45)
[2019-02-03] MEDS ORDERED: ZOFRAN ODT PO PRN (12:45)
[2019-02-03] MEDS ORDERED: ZOFRAN IV PRN (12:45)
--- NOTE | 2019-02-03 13:46 | Diag Imaging Result Doc PS360 ---
EXAM: KNEE 1-2 VIEWS-LEFT 02/03/2019 HISTORY: left total knee arthroplasty TECHNIQUE: Left knee two views COMMENT: There has been total knee arthroplasty. There is no evidence of acute bony abnormality. IMPRESSION: Postsurgical changes. Electronically signed by Theo Uriarte 02/03/2019 1:44 PM
[2019-02-03] MEDS ORDERED: SODIUM CHLORIDE 0.9% MISC SCH (14:15)
--- NOTE | 2019-02-03 15:05 | PROGRESS NOTE ---
DATE: 02/03/2019 SUBJECTIVE DATA: Ms. Westbrook is seen on postop day zero of her left total knee arthroplasty. She reports she is hungry at this time and she is tired of eating Jell-o. She states her pain is about a 4/10. She denies nausea, vomiting, or any trouble at this time. She reports her left leg does still have some numbness from the medication she was given. OBJECTIVE DATA: There are good pedal pulses to the left lower extremity. There is negative Homans sign. The bandage is clean and dry. The patient is able to move her foot up and down without difficulty. Her vital signs have been stable. ASSESSMENT: Degenerative joint disease, left knee, with left total knee arthroplasty. PLAN: We plan on keeping Ms. Westbrook overnight in the hospital. She will need to walk with Physical Therapy and get her pain under control before we let her leave. We will check back on her in the morning and see how she is doing. Will likely go ahead and advance her diet and let her eat solid food. Dictated by ANNABELLA Croft for Angelito Sutherland MD cc: ANNABELLA Croft MD
[2019-02-03] MEDS: ULTRAM PO SCH ×2 (16:12→21:41)
[2019-02-03] MEDS: NS 1,000 ML IV SCH (16:17)
[2019-02-03] MEDS: TYLENOL PO SCH ×2 (16:23→21:40)
[2019-02-03] MEDS ORDERED: XOPENEX HFA INH PRN (18:37)
[2019-02-03] MEDS ORDERED: PHENERGAN PO PRN (18:37)
[2019-02-03] MEDS: OXY IR PO PRN (18:56)
[2019-02-03] MEDS: REQUIP PO SCH (21:39)
[2019-02-03] MEDS: PERIDEX MT SCH (21:39)
[2019-02-03] MEDS: COZAAR PO SCH (21:40)
[2019-02-03] MEDS: BENTYL PO SCH (21:40)
[2019-02-03] MEDS: BUSPAR PO SCH (21:40)
[2019-02-03] MEDS: CELEBREX PO SCH (21:40)
[2019-02-03] MEDS: PRILOSEC PO SCH (21:40)
[2019-02-03] MEDS: COLACE PO SCH (21:40)
[2019-02-03] MEDS: COREG PO SCH (21:41)
[2019-02-03] MEDS: DESYREL PO SCH (21:41)
[2019-02-03] MEDS: WELLBUTRIN SR PO SCH (21:41)
[2019-02-03] MEDS: KLONOPIN PO SCH (21:41)
[2019-02-03] MEDS: DEPAKOTE ER PO SCH (21:41)
[2019-02-03] MEDS: ROBAXIN PO SCH (21:42)
[2019-02-03] MEDS: DILAUDID IV PRN (23:12)
[2019-02-04] MEDS: TYLENOL PO SCH ×5 (02:25→23:03)
[2019-02-04] MEDS: DILAUDID IV PRN ×3 (04:12→20:30)
[2019-02-04] MEDS: ULTRAM PO SCH ×4 (05:22→23:03)
[2019-02-04] MEDS: NS 1,000 ML IV SCH ×2 (05:23→17:01)
[2019-02-04 07:10] LABS: HEMATOCRIT 33.5 % (37.0-47.0); HEMOGLOBIN 10.7 g/dL (12.0-16.0)
[2019-02-04] MEDS: OXY IR PO PRN ×4 (07:20→21:38)
[2019-02-04 07:29] LABS: AGAP 14; BUN 8 mg/dL (8-22); CALCIUM 7.6 mg/dL (8.8-10.2); CHLORIDE 101 mmol/L (98-107); COSMO 280; CREATININE 0.7 mg/dL (0.5-0.9); ESTIMATED GFR > 60; GLUCOSE 131 mg/dL (70-104); POTASSIUM 4.2 mmol/L (3.5-5.1); SODIUM 140 mmol/L (136-145); TCO2 25 mmol/L (25-35)
--- NOTE | 2019-02-04 07:44 | ORTHOPAEDICS PROGRESS NOTE ---
DATE: 02/04/2019 Ms. Westbrook is seen today status post knee replacement. Currently, she is afebrile with stable vital signs. There are no signs of DVT. We will plan on discontinuing lines and mobilizing her today. She reports she lives alone and is concerned about falling. She does have difficulty with both shoulders and manipulation of the walker. We will need to get therapy to evaluate her today. She is a high fall risk. Due to this, I have recommended inpatient rehab. We will get elementary school social worker involved for that. We will check her back pending results of inpatient rehab in the near future. cc: Angelito Sutherland MD
--- NOTE | 2019-02-04 08:18 | Diag Imaging Result Doc PS360 ---
EXAM: CHEST-1 VIEW HISTORY: REHAB TECHNIQUE: Single view COMPARISON: 12/04/2018 FINDINGS: The lungs are well expanded. The heart is not enlarged. The vessels are not distended. There are no infiltrates. No effusion identified. There is a right jugular line on the current exam. No pneumothorax. Interval removal of the left subclavian line. IMPRESSION: No acute abnormality. Electronically signed by Gilmer Kearney 02/04/2019 8:16 AM
[2019-02-04] MEDS ORDERED: POTASSIUM PO SCH (09:00)
[2019-02-04] MEDS: KLONOPIN PO SCH ×2 (09:00→21:40)
[2019-02-04] MEDS: XOPENEX NEB INH PRN ×2 (09:56→15:18)
[2019-02-04] MEDS: BENTYL PO SCH ×4 (11:41→21:39)
[2019-02-04] MEDS: COLACE PO SCH ×2 (11:41→21:39)
[2019-02-04] MEDS: PRILOSEC PO SCH ×2 (11:42→21:39)
[2019-02-04] MEDS: BUSPAR PO SCH ×2 (11:43→21:38)
[2019-02-04] MEDS: MAG-OX PO SCH (11:44)
[2019-02-04] MEDS: WELLBUTRIN SR PO SCH ×2 (11:44→21:39)
[2019-02-04] MEDS: ROBAXIN PO SCH ×3 (11:44→21:39)
[2019-02-04] MEDS: PEPCID PO SCH (11:44)
[2019-02-04] MEDS: LASIX PO SCH (11:44)
[2019-02-04] MEDS: CELEBREX PO SCH ×2 (11:45→21:38)
[2019-02-04] MEDS: PERIDEX MT SCH ×2 (11:45→21:38)
[2019-02-04] MEDS: PREMARIN PO SCH (11:45)
[2019-02-04] MEDS: ASPIRIN PO SCH (11:45)
[2019-02-04] MEDS: COREG PO SCH (21:39)
[2019-02-04] MEDS: REQUIP PO SCH (21:39)
[2019-02-04] MEDS: COZAAR PO SCH (21:39)
[2019-02-04] MEDS: DEPAKOTE ER PO SCH (21:39)
[2019-02-04] MEDS: DESYREL PO SCH (21:40)
[2019-02-05] MEDS: DILAUDID IV PRN ×4 (00:01→13:27)
[2019-02-05] MEDS: OXY IR PO PRN (01:39)
[2019-02-05 07:10] LABS: HEMATOCRIT 32.1 % (37.0-47.0); HEMOGLOBIN 10.2 g/dL (12.0-16.0)
[2019-02-05] MEDS: XOPENEX NEB INH PRN ×3 (09:48→21:11)
[2019-02-05] MEDS: LASIX PO SCH (09:54)
[2019-02-05] MEDS: ROBAXIN PO SCH ×3 (09:54→22:16)
[2019-02-05] MEDS: CELEBREX PO SCH ×2 (09:54→22:16)
[2019-02-05] MEDS: KLONOPIN PO SCH ×2 (09:54→22:16)
[2019-02-05] MEDS: PRILOSEC PO SCH ×2 (09:55→22:15)
[2019-02-05] MEDS: COLACE PO SCH ×2 (09:55→22:15)
[2019-02-05] MEDS: MAG-OX PO SCH (09:55)
[2019-02-05] MEDS: ASPIRIN PO SCH (09:55)
[2019-02-05] MEDS: WELLBUTRIN SR PO SCH ×2 (09:55→22:16)
[2019-02-05] MEDS: BENTYL PO SCH ×4 (09:55→22:16)
[2019-02-05] MEDS: PEPCID PO SCH (09:55)
[2019-02-05] MEDS: PREMARIN PO SCH (09:56)
[2019-02-05] MEDS: PERIDEX MT SCH ×2 (09:56→22:15)
[2019-02-05] MEDS: BUSPAR PO SCH ×2 (09:57→22:16)
[2019-02-05] MEDS: TYLENOL PO SCH ×2 (12:18→17:40)
[2019-02-05] MEDS: ULTRAM PO SCH ×2 (12:19→17:40)
[2019-02-05] MEDS ORDERED: MAALOX PLUS LIQUID PO PRN (13:58)
--- NOTE | 2019-02-05 14:18 | ORTHOPAEDICS PROGRESS NOTE ---
DATE: 02/05/2019 SUBJECTIVE DATA: Ms. Westbrook is seen postop day 2 of her left total knee arthroplasty. She reports she is doing well, but does have some increasing pain and swelling throughout the left lower extremity. She denies nausea, vomiting, or drainage at this time. She reports she does have some indigestion. She states she has been eating chocolate today for Halloween. OBJECTIVE DATA: There is good sensation in the left lower extremity. There is some tenderness along the left knee, with some swelling present. [place] are intact. There is no obvious drainage. The bandages are clean and dry. There are good pedal pulses. Vital signs are stable. ASSESSMENT: Degenerative joint disease, left knee, with left total knee arthroplasty. PLAN: Will plan on keeping Ms. Westbrook in the hospital overnight. Will likely get her discharged tomorrow with inpatient rehab. She does not have any help at home. She does have difficulty ambulating and getting up and down to the restroom. She will require assistance for a couple of weeks. She is a high fall risk. Will check back on her in the morning to see how she is doing. Dictated by ANNABELLA Croft for Angelito Sutherland MD cc: ANNABELLA Croft MD
[2019-02-05] MEDS ORDERED: NS NEB INH SCH (15:30)
[2019-02-05] MEDS: DESYREL PO SCH (22:15)
[2019-02-05] MEDS: DEPAKOTE ER PO SCH (22:16)
[2019-02-05] MEDS: COZAAR PO SCH (22:16)
[2019-02-05] MEDS: COREG PO SCH (22:16)
[2019-02-05] MEDS: REQUIP PO SCH (22:16)
[2019-02-06] MEDS: TYLENOL PO SCH ×3 (01:14→12:42)
[2019-02-06] MEDS: ULTRAM PO SCH ×3 (01:14→12:42)
[2019-02-06 06:33] LABS: HEMATOCRIT 29.7 % (37.0-47.0); HEMOGLOBIN 9.4 g/dL (12.0-16.0)
[2019-02-06] MEDS: LASIX PO SCH (09:29)
[2019-02-06] MEDS: BENTYL PO SCH ×2 (09:29→12:42)
[2019-02-06] MEDS: BUSPAR PO SCH (09:29)
[2019-02-06] MEDS: MAG-OX PO SCH (09:29)
[2019-02-06] MEDS: PERIDEX MT SCH (09:29)
[2019-02-06] MEDS: ASPIRIN PO SCH (09:30)
[2019-02-06] MEDS: PEPCID PO SCH (09:30)
[2019-02-06] MEDS: ROBAXIN PO SCH (09:30)
[2019-02-06] MEDS: PRILOSEC PO SCH (09:30)
[2019-02-06] MEDS: CELEBREX PO SCH (09:30)
[2019-02-06] MEDS: KLONOPIN PO SCH (09:30)
[2019-02-06] MEDS: PREMARIN PO SCH (09:31)
[2019-02-06] MEDS: WELLBUTRIN SR PO SCH (09:31)
[2019-02-06] MEDS: COLACE PO SCH (09:31)
--- NOTE | 2019-02-06 10:20 | DISCHARGE SUMMARY ---
ADMISSION DATE: 02/03/2019 DISCHARGE DATE: 02/06/2019 ADMITTING DIAGNOSIS: Degenerative joint disease, left knee. DISCHARGE DIAGNOSIS: Degenerative joint disease, left knee. PRINCIPLE PROCEDURE: Left total knee arthroplasty. PAST MEDICAL HISTORY: Includes asthma, depression, high blood pressure, sleep apnea, stroke, ulcerative colitis and Crohn disease. ALLERGIES: The patient is allergic to tape, cefazolin, Betadine, albuterol, morphine. She had oxycodone listed, but she has been tolerating it well here in the hospital. HOSPITAL COURSE: The patient was taken to the operating room on 02/03/2019 for a left total knee arthroplasty. She underwent this surgery without any problems. She has taken right to the recovery room and then transferred to the surgical floor. Mechanical and chemical DVT prophylaxis were initiated. Routine postop antibiotics were administered. Her Hemovac drain was discontinued on postop day 2. She walked with physical therapy with some difficulty at first. She was able to spontaneously void. She transitioned to oral pain medication. Her incision remained clean, dry, and intact during the hospital course. She had some acid reflux type symptoms on 02/05/2019, which were relieved by Maalox. There has been no pain with calf squeeze. There is good sensation to the left lower extremity. There are good pedal pulses. There is good capillary refill in the toes. She felt ready to be discharged on 04/26/2018. DISPOSITION: She will be discharged to inpatient rehab. She needs rehab due to her past medical history of stroke and problems with ambulation. She also has no help at home. FOLLOWUP: She is to follow up with Dr. Sutherland in 2 weeks. DISCHARGE INSTRUCTIONS: She is to be going to inpatient rehab at this time with assistance. DISCHARGE MEDICATIONS: Include 1. Aspirin daily for DVT prophylaxis. 2. Percocet 10 for pain control. 3. Doxycycline 100 mg twice daily for infection prevention. 4. I also wrote her additional prescriptions for anxiety as needed. Dictated by ANNABELLA Croft for Angelito Sutherland MD cc: ANNABELLA Croft MD
[2019-02-06 11:37] VITALS: BP 108/53
== END 2019-02-06 13:54 | DRG 470 ==
LOC: OPS 07:53 → 4N 07:53 → PAT 07:53 → OBSVTOIN 13:08
PROVIDERS: ADMIT Orthopaedic Surgery Adult Reconstructive Orthopaedic Surgery; ATTEND Orthopaedic Surgery Adult Reconstructive Orthopaedic Surgery